=== PATIENT | male | born 1960 | race Caucasian/White ===

== ENCOUNTER 2019-04-16 05:25 | Emergency (ER) | payer BC, SELFPAY ==
[2019-04-16 05:55] VITALS: BP 114/71; PULSE 80; RESP 20; TEMP 36.7; O2SAT 97
--- NOTE | 2019-04-16 06:19 | ED.BACK ---
HPI - Back Pain/Injury General Chief Complaint: Back Pain/Injury Stated Complaint: sick Source: patient Mode of arrival: ambulatory Limitations: no limitations History of Present Illness HPI Narrative: 58 y.o. c/o right sided low back pain exacerbation for one week, worse over the past 3 days. Chronic pain x years. His pain is typically no more than 3/10, but now is 7/10, and gets up to a 8-9/10 with movement. Getting in and out of bed, putting shoes on, bending forward and assuming upright position are all painful. Has had multiple MRIs which, pt. reports, show disc herniation at L3 through S1. He has no pain or numbness radiating into the buttocks, thigh or leg. He denies weakness. Coughing and laughing cause minor discomfort. His current symptoms are identical to that of a year ago, and exacerbations in the past. 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 Recently he has been doing more activities that involve bending over the bucket, or shoveling, which exacerbate the pain. Ibuprofen and Tylenol with codeine have been tried without benefit. In the past, last time about one year ago, when he's had these same symptoms, they have responded to a steroid shot, Toradol shot and Medrol dosepak. He denies fever, chills, weight loss, hx of cancer. NO bowel/bladder dysfunction. Radiation: other (at times pain also radiates up right side of back to the scapula region. ) Related Data Home Medications Medication Instructions Recorded Confirmed acetaminophen-codeine 1 tablet PO Q4H PRN 04/16/19 04/16/19 [Tylenol-Codeine #3] Allergies Allergy/AdvReac Type Severity Reaction Status Date / Time No Known Allergies Verified 03/14/09 12:11 Review of Systems Constitutional: Constitutional: Reports as per HPI and Denies fever(s) ENT: Denies dizziness Cardiovascular: Cardiovascular: Denies chest pain Respiratory: Respiratory: Denies dyspnea Gastrointestinal: Gastrointestinal: Denies abdominal pain, Denies diarrhea and Denies vomiting Genitourinary: Genitourinary: Denies dysuria Musculoskeletal: Musculoskeletal: Reports no additional musculoskeletal complaints Integumentary/Breasts: Skin/Breast: Denies rash Neurologic: Reports system reviewed and no additional complaints, except as documented PMFSH Past Medical History Medical History (Updated 04/16/19 @ 06:42 by John Mendez MD) Disc disorder of lumbar region Family History Family History (Updated 04/16/19 @ 06:43 by John Mendez MD) Mother Lung cancer Father Liver cirrhosis Social History Social History (Updated 04/16/19 @ 06:43 by John Mendez MD) Smoking status: Never smoker Exam Narrative: Exam Narrative: Lying flat on his back. Has to turn over onto his side and push himself to sitting position in order to stand up, which appears to be painful. Const: General: No ill appearing HENMT: Head: normal to inspection Face and sinus: normal facial exam Neck: Neck: no lymphadenopathy Resp: Auscultation: clear to auscultation bilaterally Cardio: Rate: regular rate Rhythm: regular rhythm Heart sounds: no murmurs GI: GI Palp: Yes Soft to palpation and No Tenderness to palpation present (GI) Back/Spine/Pelvis: Back: no CVA tenderness Other: stands upright. Points to the right lumbar region between L1 in 5 worry has discomfort. There has been no tenderness on palpation. No muscle spasm. Lumbar and sacral spinous processes. No sciatic notch tenderness. He is able to flex forward approximately 20? when he encounters increased pain. Is painful do a semi-upright position. Skin: General skin exam: normal color Rashes: no rashes Neuro: General: moves all extremities Other: light touch sensation to the feet intact. 5+ great toe dorsiflexion strength bilaterally. Able to walk on heels and toes with normal strength. 2+ patellar and ankle jerk reflexes. Straight leg raise negative Course Course Emergency Course: He wa
[2019-04-16] MEDS: KETOROLAC (*BKC) 60 MG/2 ML VIAL IM (06:24)
[2019-04-16] MEDS: predniSONE 20 MG TABLET 60 MG PO (06:24)
[2019-04-16 06:47] VITALS: BP 120/62; PULSE 82; RESP 18; O2SAT 98
== END 2019-04-16 06:51 | disposition home or self-care (01) ==
PROVIDERS: Emergency Provider Family Medicine; PCP Internal Medicine
DX: M54.16 Radiculopathy, lumbar region (principal)
CPT/HCPCS: 96372; 99283; J1885; J7512

== ENCOUNTER 2019-09-21 16:16 | Outpatient (CLI) | payer BC, SELFPAY ==
--- NOTE | ~2019-09-21 | XR_ITS ---
XR knee LT min 4V 09/21/2019 16:54 Indication: Left knee pain Procedure: 4 views left knee Comparison: 03/03/2018 Findings: There is mild tricompartment osteoarthritis of the left knee. No fracture or traumatic victor hugo lignment. No significant joint effusion. No focal soft tissue abnormality. No foreign bodies. Impression: 1: Mild tricompartment osteoarthritis of the left knee. Reviewed, dictated and finalized at location A. Impression: 1: Mild tricompartment osteoarthritis of the left knee.
== END 2019-09-21 16:17 | disposition home or self-care (01) ==
LOC: CHSIMG 16:21
PROVIDERS: PCP Internal Medicine; Visit Provider Internal Medicine
DX: M25.562 Pain in left knee (principal)
CPT/HCPCS: 73564

== ENCOUNTER 2019-12-16 16:39 | Emergency (ER) | payer BC, SELFPAY ==
[2019-12-16 17:57] VITALS: BP 97/67; PULSE 97; RESP 16; TEMP 36.6; O2SAT 97
[2019-12-16] MEDS: KETOROLAC (*BKC) 60 MG/2 ML VIAL IM (18:09)
[2019-12-16] MEDS: methylPREDNISolone ACETATE 40 MG/ML VIAL 80 MG IM (18:12)
--- NOTE | 2019-12-16 18:30 | ED.BACK ---
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 Patient has not had any fever or chills, gets relief with some with some rest and with walking with exacerbation with movement twisting. Has tried [id number] medications with minimal relief has a chronic history of back problems and has had back spasms in the past. MD elicited complaint: back pain Pertinent past history: prior back pain Onset (ago): hour(s) Timing: intermittent Severity: moderate Similar Symptoms Previously: Yes Quality: aching and spasming Location: lumbar spine and right lower back Radiation: none Exacerbating factors: movement Relieving factors: sitting upright and walking Context: while lifting, turning/twisting and bending Associated symptoms: denies other symptoms Related Data Allergies Allergy/AdvReac Type Severity Reaction Status Date / Time No Known Allergies Allergy Verified 12/16/19 17:57 Review of Systems Review of Systems: All systems reviewed & are unremarkable except as noted in HPI and below PMFSH Past Medical History Medical History Chronic back pain Exam Const: General: cooperative, healthy appearing, comfortable, no acute distress, well developed, alert, awake and Physically active HENMT: Face and sinus: normal facial exam Mouth: Yes Normal oral and palatal mucosa present Throat: posterior oropharynx normal Eyes: General: appearance normal, both eyes and all related structures Visual Leija: normal visual leija by confrontation Neck: Neck: normal visual inspection Chest: Chest palpation & inspection: normal inspection of the chest Resp: Effort & Inspection: normal respiratory effort and able to speak in complete sentences Auscultation: clear to auscultation bilaterally Cardio: Jugular venous distension: no JVD Palpation: normal PMI Rate: regular rate Rhythm: regular rhythm Heart sounds: S1 normal heart sound present and S2 normal heart sound present GI: Inspection: normal to inspection Percussion: Yes normal to percussion Auscultation: normal bowel sounds Back/Spine/Pelvis: Thoracic/Lumbar Spine: paraspinal muscle tenderness, thoraco-lumbar ROM limited, thoraco-lumbar spasm and lumbar spinal tenderness Skin: General skin exam: normal color and no rashes or lesions noted Psych: Appearance: grossly normal and well kempt Mental Status: mental status grossly normal Affect: normal affect Course Course Emergency Course: patient's back pain and spasm is some mildly relieved with Depo-Medrol and Toradol, advised patient to take medicine as prescribed and follow-up with with his primary care physician. Vital Signs Vital signs: Vital Signs Temperature 36.6 C 12/16/19 17:57 Pulse Rate 97 12/16/19 17:57 Respiratory Rate 16 12/16/19 17:57 Blood Pressure 97/67 L 12/16/19 17:57 Pulse Oximetry 97 12/16/19 17:57 Temperature 36.6 C 12/16/19 17:57 Pulse Rate 97 12/16/19 17:57 Respiratory Rate 16 12/16/19 17:57 Blood Pressure 97/67 L 12/16/19 17:57 Pulse Oximetry 97 12/16/19 17:57 Critical Care Time Critical Care Time Critical Care Time: No Discharge Plan Discharge Clinical Impression: Strain of lumbar region Qualifiers: Encounter type: initial encounter Qualified Code(s): S39.012A - Strain of muscle, fascia and tendon of lower back, initial encounter Patient Disposition: Home, Self-Care Condition: Stable Instructions: Antibiotic Form, Back Pain (ED), Lower Back
== END 2019-12-16 18:58 | disposition home or self-care (01) ==
PROVIDERS: Emergency Provider Emergency Medicine; PCP Internal Medicine
DX: S39.012A Strain of muscle, fascia and tendon of lower back, initial encounter (principal)
CPT/HCPCS: 96372; 99283; 99284; J1030; J1885

== ENCOUNTER 2019-12-21 07:45 | Outpatient (RCR) | payer BC, SELFPAY ==
--- NOTE | 2019-12-21 07:47 | PTOPEVAL ---
Thank you for referring John Queen to [facility] [place][Note 3].? The patient is scheduled to be seen for therapy? _1___x/week for __6_ weeks. Please review, sign, date and return this plan of care JAKE. I agree with and certify that the following plan of care is medically necessary. Referring Physician Date Admitting Provider: Attending Provider: Tennille Newsome MD Referring Provider: *PT Outpatient Evaluation Start: 12/21/19 06:58 Freq: Status: Active Protocol: Document 12/21/19 07:00 [facility] (Rec: 12/21/19 07:46 [facility] [id number]) Therapy Assessment Status Assessment Status Assessment Status Evaluation Outpatient Past Medical History Musculoskeletal History Hx Back Pain Yes Evaluation Information Problem Diagnosis acute lumbar sprain Onset 12/15/19 Additional Evaluation Detail 34% limitation on the Oswestry Subjective Information Pt. reports that he developed Query Text:As Reported By Patient/ some tightness on 12/15/19. Family He states that he notes difficulty with lifting him self from a flat back position . He reports that he was moving some logs that Wednesday which increased his pain. He reports that he could not get out of bed on Wednesday and Wednesday without extreme pain. He reports that he recieved a toridol shot and steroid dose pack which helped to reduce his pain. He reports that he has not had intense pain for about 1 year. He states that he has multiple levels of herniation in the lumbar spine . He reports that the harder his activity level the more pain he has. He states that his goal is to be pain free. 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
--- NOTE | 2020-02-12 08:37 | PTOPEVAL ---
Thank you for referring John Queen to [facility] [place].? The patient is scheduled to be seen for therapy? ____x/week for ___ weeks. Please review, sign, date and return this plan of care JAKE. I agree with and certify that the following plan of care is medically necessary. Referring Physician Date Admitting Provider: Attending Provider: Tennille Newsome MD Referring Provider: *PT Outpatient Evaluation Start: 12/21/19 06:58 Freq: Status: Active Protocol: Document 02/12/20 07:00 [facility] (Rec: 02/12/20 08:28 [facility] [id number]) Therapy Assessment Status Assessment Status Assessment Status Re-evaluation Outpatient Past Medical History Musculoskeletal History Hx Back Pain Yes Evaluation Information Problem Diagnosis acute lumbar sprain Additional Evaluation Detail 36% limitation on Oswestry Subjective Information patient reports he has been Query Text:As Reported By Patient/ off from therapy for a few Family weeks due to being in quarantine and then working. he reports he is still having a bit of back pain. he reports the pain is worse in the evenings after a long/ exhaustive day. he reports his back pain does fluctuate and he continues to get spasming in the legs when in bed at night. Pain Assessment Timing of Pain Assessment Timing of Pain Assessment Assessment Pain Scale Pain Scale Used Numeric (1 - 10) Self Report Pain Assessment Lower Back Reported Pain Level 2 Pain Description Aching,Cramping Pain Frequency Intermittent Lowest Pain Intensity 2 Greatest Pain Intensity 10 Pain Aggravating Factors Bending Pain Score Pain Score 2: Self Report Interventions Used Interventions Used By Clinicians Activity or ADL's,Education, Electrical Stimulation, Exercise,Heat Cervical and Lumbar ROM Lumbar ROM Lumbar Extension (0-40) 30 Query Text:Active in Degrees Lumbar Lateral Flexion Right (0-40) 35 Query Text:Active in Degrees Lumbar Lateral Flexion Left (0-40) 35 Query Text:Active in Degrees Lower Extremity Muscle Strength Testing General Lower Extremity Strength Gross Lower Extremity Strength bilateral hip abduction 4+/5 bilateral hip extension 4+/5 Muscle Length Testing Muscle Length Testing Piriformis w/Hip Flexion >90 Degrees (R) Moderate Tightness,(L) Moderate Tightness
== END 2020-02-27 08:54 | disposition home or self-care (01) ==
LOC: CHSPT 07:45
PROVIDERS: PCP Internal Medicine; Visit Provider Internal Medicine
DX: S33.5XXA Sprain of ligaments of lumbar spine, initial encounter (principal)
CPT/HCPCS: 97014; 97110; 97161; G0283

== ENCOUNTER → 2020-01-11 07:01 | Outpatient (CLI) | payer BC, SELFPAY ==
--- NOTE | ~2020-01-11 | MR_ITS ---
EXAMINATION: MR knee LT wo con DATE: 01/11/2020 07:42 INDICATION: Left knee pain. TECHNIQUE: Magnetic resonance imaging (MRI) of the left knee was performed without intravenous contra st. Sequences included axial PD-weighted FS FSE, coronal PD-weighted FSE and PD-weighted FS FSE, sagi ttal PD-weighted FSE, and sagittal T2-weighted FS FSE. COMPARISON: None. FINDINGS: Medial compartment: Medial meniscus is normal. Tibial cartilage is normal. There is cartilage surface irregularity of fem oral condyle involving the central articular surface. Lateral compartment: There is maceration of body and posterior horn of lateral meniscus. There is full-thickness cartilage loss of tibial condyle involving the central, medial, lateral, and posterior aspects of the articula r surface with moderate subchondral edema-like marrow signal intensity and small subchondral cyst. Th ere is full-thickness cartilage loss of femoral condyle involving the central, lateral, and posterior articular surface with mild subchondral edema-like marrow signal intensity. There is extensive parti al thickness cartilage loss of femoral condyle. Marginal osteophytes are noted. Patellofemoral compartment: There is shallow partial-thickness cartilage loss of patellar lateral facet. There is cartilage surfa ce irregularity of trochlea. Ligaments and tendons: Anterior and posterior cruciate ligaments are intact. Medial collateral ligament and lateral collater al ligament complex are normal. There is mild patellar tendinopathy. Fluid: There is a small knee joint effusion. There are ganglion cysts adjacent to proximal tibiofibular join t measuring up to 13 x 8 x 17 mm. IMPRESSION: 1. Severe chondrosis of lateral compartment and mild chondrosis of medial and patellofemoral compartm ents. 2. Maceration of lateral meniscus. 3. Small knee joint effusion. Reviewed, dictated and finalized at location A. T ATTENDANT IMPRESSION: 1. Severe chondrosis of lateral compartment and mild chondrosis of medial and p atellofemoral compartments. 2. Maceration of lateral meniscus. 3. Small knee joint effusion.
== END ==
PROVIDERS: PCP Internal Medicine; Visit Provider Internal Medicine
DX: M25.462 Effusion, left knee (principal)
CPT/HCPCS: 73721

== ENCOUNTER 2020-07-29 07:52 | Outpatient (RCR) | payer OTHER, SELFPAY ==
--- NOTE | 2020-07-29 09:14 | PTOPEVAL ---
Thank you for referring John Queen to [facility].? The patient is scheduled to be seen for therapy? ____x/week for ___ weeks. Please review, sign, date and return this plan of care JAKE. I agree with and certify that the following plan of care is medically necessary. Referring Physician Date Admitting Provider: Attending Provider: Jett Lacy Referring Provider: *PT Outpatient Evaluation Start: 07/29/20 08:04 Freq: Status: Active Protocol: Document 07/29/20 08:00 [facility] (Rec: 07/29/20 09:03 [facility] [id number]) Therapy Assessment Status Assessment Status Assessment Status Evaluation Outpatient Past Medical History Musculoskeletal History Hx Back Pain Yes Evaluation Information Problem Diagnosis s/p L RTC repair Onset 05/10/20 Additional Evaluation Detail quick dash = 81% functionally declined Subjective Information patient reports he injured his Query Text:As Reported By Patient/ L shoulder back on 05/10/20 Family at work. he reports he works for [id number]. he reports he was carrying about 20 loads of sand [employer]izabeth [employer] [place]. he reports the wheel barrown fell down into some sand and he felt 2 pings in his shoulder . he reports from then on he had pain and discomfort in the L shoulder. later on this was coupled by decreased mobility . he reports he is now S/P surgery and will be 2 weeks out this wednesday. Prior Level of Function Comments Additional Prior Level of Function prior to injury at work, no Comments issues with the L shoulder. Pain Assessment Timing of Pain Assessment Timing of Pain Assessment Assessment Pain Scale Pain Scale Used Numeric (1 - 10) Self Report Pain Assessment Left Shoulder(s) Reported Pain Level 3 Greatest Pain Intensity 10 Pain Score Pain Score 3: Self Report Interventions Used Interventions Used By Clinicians Activity or ADL's,Education, Exercise Upper Extremity Range of Motion Scapular/ Shoulder Range of Motion Left Shoulder Flexion - Passive 90 Shoulder Medial Rotation - Passive 50 Shoulder Lateral Rotation - Passive 0 Right Shoulder Flexion - Active 160 Shoulder Flexion - Passive 165 Shoulder Medial Rotation - Active 55 Shoulder Lateral Rotation - Active 90 Elbow/Forearm Range of Motion Left El
--- NOTE | 2020-08-14 07:51 | PCPTNOTE ---
Mr. Queen has attended 8 skilled therapy visits as of this date. His therapy has focused solely on PROM of the L shoulder up to this date. Today, he was progressed to pendulum exercises of the L shoulder, scapular retractions, and shoulder shrugs. As of this date, he achieves passive shoulder flexion to 135 degrees, passive shoulder abduction to 100 degrees, and passive shoulder ER to 20 degrees at 0 degrees of shoulder abduction. He tolerates therapy well, but still struggles with pain at night. He continues to be compliant with his sling wear, and has family assist at home for exercises. Thank you for allowing me to be involved in the rehab of Mr. Queen. Please feel free to call my office if you have any further questions or issues. Sincerely, Ralph Allison DPT
[2020-08-30 07:00] VITALS: BP_SYST 90
--- NOTE | 2020-08-30 08:22 | PTOPEVAL ---
Thank you for referring John Anderson to [facility].? The patient is scheduled to be seen for therapy? ____x/week for ___ weeks. Please review, sign, date and return this plan of care JAKE. I agree with and certify that the following plan of care is medically necessary. Referring Physician Date Admitting Provider: Attending Provider: Jett Lacy Referring Provider: *PT Outpatient Evaluation Start: 07/29/20 08:04 Freq: Status: Active Protocol: Document 08/30/20 07:00 [facility] (Rec: 08/30/20 08:19 [facility] [id number]) Therapy Assessment Status Assessment Status Assessment Status Progress Outpatient Past Medical History Musculoskeletal History Hx Back Pain Yes Evaluation Information Problem Diagnosis s/p L RTC repair Onset 05/10/20 Subjective Information mr. anderson is now 6 weeks post Query Text:As Reported By Patient/ surgery. he reports decreasing Family pain overall. however, he reports increased pain still with trying to sleep at night. he reports he is allowed to DC sling, but has continued to use it for safety outside of the home. he reports he plans to DC his sling fully within a week. Pain Assessment Timing of Pain Assessment Timing of Pain Assessment Assessment Pain Scale Pain Scale Used Numeric (1 - 10) Self Report Pain Assessment Left Shoulder(s) Reported Pain Level 2 Greatest Pain Intensity 8 Pain Score Pain Score 2: Self Report Interventions Used Interventions Used By Clinicians Activity or ADL's,Education, Electrical Stimulation, Exercise,Heat Upper Extremity Range of Motion Scapular/ Shoulder Range of Motion Left Shoulder Flexion - Passive 145 Shoulder Abduction - Passive 90 Shoulder Medial Rotation - Passive 75 Shoulder Medial Rotation - Active measured at 45 degrees Query Text:Reach Behind the Back abduction Shoulder Lateral Rotation - Passive 36 Shoulder Lateral Rotation - Active mesaured at 45 degrees Query Text:Reach Behind the Head abduction Scapular/Shoulder Range of Motion supine arom L shoulder flex = Comments 145 degrees patient reports popping and catching in the L shoulder with pain with passive abduction, but achieves 90 degrees. Elbow/Forearm Range of Motion Left Reason Not Measured WNL/Left Right
[2020-09-27 07:05] VITALS: BP_SYST 135
--- NOTE | 2020-09-27 08:29 | PTOPEVAL ---
Thank you for referring John Queen to [facility] [place].? The patient is scheduled to be seen for therapy? ____x/week for ___ weeks. Please review, sign, date and return this plan of care JAKE. I agree with and certify that the following plan of care is medically necessary. Referring Physician Date Admitting Provider: Attending Provider: Jett Lacy Referring Provider: *PT Outpatient Evaluation Start: 07/29/20 08:04 Freq: Status: Active Protocol: Document 09/27/20 07:05 [facility] (Rec: 09/27/20 08:28 [facility] [id number]) Therapy Assessment Status Assessment Status Assessment Status Re-evaluation Outpatient Past Medical History Musculoskeletal History Hx Back Pain Yes Evaluation Information Problem Diagnosis s/p L RTC repair Onset 05/10/20 Subjective Information patient presents to therapy Query Text:As Reported By Patient/ this date with a new order to Family continue skilled PT from his MD. patient is just past 10 weeks out from therapy and still limited to arom/aarom and shoulder isometric strengthening. Pain Assessment Timing of Pain Assessment Timing of Pain Assessment Assessment Pain Scale Pain Scale Used Numeric (1 - 10) Self Report Pain Assessment Left Shoulder(s) Reported Pain Level 3 Greatest Pain Intensity 8 Pain Score Pain Score 3: Self Report Additional Pain Score Comments patient reports stabbing pain in the L shoulder within the last week when he is washing his hair, reaching out to turn on light switch, Interventions Used Interventions Used By Clinicians Activity or ADL's,Education, Exercise Upper Extremity Range of Motion Scapular/ Shoulder Range of Motion Left Shoulder Flexion - Active 140 Shoulder Flexion - Passive 155 Shoulder Abduction - Active 105 Shoulder Abduction - Passive 135 Shoulder Lateral Rotation - Active 25 Shoulder Lateral Rotation - Passive 40 Scapular/Shoulder Range of Motion patient reports tightness and Comments pain with L shoulder ER mobility. Upper Extremity Muscle Strength Testing Scapular/Shoulder Left Shoulder Flexion Strength 3+ Fair + Shoulder Abduction Strength 3+ Fair + Shoulder Medial Rotation Strength 3+ Fair + Shoulder Lateral Rotation Strength 3+ Fair + Shoulder Strength Comments patient reports catching/ stabbing pain still in the L
--- NOTE | 2020-10-14 12:56 | PTOPEVAL ---
Thank you for referring John Queen to [facility].? The patient is scheduled to be seen for therapy? __2__x/week for 5 visits. Please review, sign, date and return this plan of care JAKE. I agree with and certify that the following plan of care is medically necessary. Referring Physician Date Admitting Provider: Attending Provider: Jett Lacy Referring Provider: *PT Outpatient Evaluation Start: 07/29/20 08:04 Freq: Status: Active Protocol: Document 10/14/20 07:00 FLY (Rec: 10/14/20 12:55 FLY [id number]) Therapy Assessment Status Assessment Status Assessment Status Progress Outpatient Past Medical History Musculoskeletal History Hx Back Pain Yes Evaluation Information Problem Diagnosis s/p left RTC repair Onset 05/10/20 Subjective Information Pt. reports that he has been Query Text:As Reported By Patient/ feeling better the past couple Family days. He states that he has not been using tramadol and was able to sleep comfortably in bed last night. He reports that he still has a small area of pain that concerns him in the described lateral shoulder. Pain Assessment Timing of Pain Assessment Timing of Pain Assessment Pre-Treatment Pain Scale Pain Scale Used Numeric (1 - 10) Self Report Pain Assessment Left Shoulder(s) Reported Pain Level 2 Pain Score Pain Score 2: Self Report Interventions Used Interventions Used By Clinicians Electrical Stimulation, Exercise,Ice Upper Extremity Range of Motion General Upper Extremity Range of Motion Gross Upper Extremity Range of Motion -left shoulder flexion AROM Comments 155 degrees -left shoulder ER AROM 85 degrees -left shoulder IR AROM 72 degrees Upper Extremity Muscle Strength Testing General Upper Extremity Strength Gross Upper Extremity Strength Comments -left shoulder flexion 4-/5 -left shoulder ER 3+/5 -left shoulder IR 4+/5 General Exercise General Exercises Exercise Description -variable isometric flexion, Query Text:Record Sets, Reps, extension, abduction, IR, and Resistance, and Position ER x 12 reps at 5 second holds -pulleys x 3 minutes -passive stretching into left shoulder flexion, ER, and IR x 12 minutes
--- NOTE | 2020-10-30 14:15 | PTOPEVAL ---
Thank you for referring John Queen to [facility].? The patient is scheduled to be seen for therapy? ____x/week for ___ weeks. Please review, sign, date and return this plan of care JAKE. I agree with and certify that the following plan of care is medically necessary. Referring Physician Date Admitting Provider: Attending Provider: Jett Lacy Referring Provider: JacyPT Outpatient Evaluation Start: 07/29/20 08:04 Freq: Status: Discharge Protocol: Document 10/29/20 07:00 Taurus (Rec: 10/30/20 14:14 ELIJAH [email or web address]) Therapy Assessment Status Assessment Status Assessment Status Re-evaluation Outpatient Past Medical History Musculoskeletal History Hx Back Pain Yes Evaluation Information Problem Diagnosis s/p left RTC repair Onset 05/10/20 Additional Evaluation Detail quick dash = 50% functionally declined Subjective Information patient reports he feels Query Text:As Reported By Patient/ alright this date. he reports Family at rest his pain is low, but reports with reaching out to side, across body, and shrugging he will get spikes of pain up to a 7/10. he report she does not return to the MD for follow up for a few weeks. Pain Assessment Timing of Pain Assessment Timing of Pain Assessment Assessment Pain Scale Pain Scale Used Numeric (1 - 10) Self Report Pain Assessment Left Shoulder(s) Reported Pain Level 2 Pain Description Sharp Greatest Pain Intensity 7 Pain Score Pain Score 2: Self Report Interventions Used Interventions Used By Clinicians Activity or ADL's,Education, Exercise Upper Extremity Range of Motion Scapular/ Shoulder Range of Motion Left Shoulder Flexion - Active 155 Shoulder Medial Rotation - Active 72 Shoulder Medial Rotation - Active functional reach to the upper Query Text:Reach Behind the Back lumbar spine Shoulder Lateral Rotation - Active 75 Shoulder Lateral Rotation - Active functional reach to the Query Text:Reach Behind the Head midline lower cervical spine Scapular/Shoulder Range of Motion clicking and spikes of Comments pain noted with passiev and active ER and coming back to neutral from ER. Upper Extremity Muscle Strength Testing Scapular/Shoulder Left Shoulder Flexion Strength 4 Good Shoulder Abduction Strength 4- Good - Shoulder Medial Rotation Strength 5 Normal Shoulder Lateral Rotation Strength 4 Good Gen
== END 2020-10-29 18:00 | disposition still patient (30) ==
LOC: CHSPT 07:52
DX: M75.102 Unspecified rotator cuff tear or rupture of left shoulder, not specified as traumatic (principal); S46.112A Strain of muscle, fascia and tendon of long head of biceps, left arm, initial encounter
CPT/HCPCS: 97014; 97110; 97161; G0283

== ENCOUNTER 2020-10-21 08:06 | Outpatient (CLI) | payer BC, SELFPAY ==
[2020-10-21 08:31] LABS: Add Urine Microscopic? NO; Appearance Urine Clear (Clear); Basophils Absolute Auto 0.05 K/mm3 (0.00-0.10); Basophils Percent Auto 0.8 % (0.0-1.0); Bilirubin Urine Negative (Negative); Blood Urine Negative (Negative); Color Urine Light Yellow (Yellow); Eosinophils Absolute Auto 0.34 K/mm3 (0.02-0.50); Eosinophils Percent Auto 5.3 % (1.0-6.0); Glucose Urine UA Negative (Negative); Hematocrit 44.1 % (40.0-54.0); Hemoglobin 14.3 g/dL (14.0-18.0); Immature Granulocyte Absolute 0.03 K/mm3 (0.00-0.00); Immature Granulocyte Percent A 0.5 % (0.0-0.0); Ketones Urine Negative (Negative); Leukocyte Esterase Ur Negative LEU/UL (Negative); Lymphocytes Absolute Auto 1.82 K/mm3 (1.10-4.50); Lymphocytes Percent Auto 28.6 % (18.0-42.0); Mean Corpuscular HGB Conc 32.4 g/dL (32.0-36.0); Mean Corpuscular Hemoglobin 30.1 pg (27.0-31.0); Mean Corpuscular Volume 92.8 fL (78.0-102.0); Mean Platelet Volume 9.6 fl (8.7-11.0); Monocytes Absolute Auto 0.39 K/mm3 (0.10-0.90); Monocytes Percent Auto 6.1 % (2.0-11.0); Neutrophils Absolute Auto 3.7 K/mm3 (1.7-7.2); Neutrophils Percent Auto 58.7 % (50.0-70.0); Nitrate Urine Negative (Negative); Platelet Count Result 274 K/mm3 (150-420); Protein Urine Negative (Negative); Red Blood Count 4.75 M/mm3 (4.70-6.10); Red Cell Distribution Width 12.7 % (11.6-14.4); Urobilinogen Urine 0.2 mg/dL (0.2-1.0); White Blood Count 6.4 K/mm3 (4.8-10.8)
[2020-10-21 09:40] LABS: Alanine Aminotransferase 32 U/L (16-63); Albumin Level 4.3 g/dL (3.4-5.0); Alkaline Phosphatase 50 U/L (46-116); Anion Gap 7 mmol/L (8-16); Aspartate Amino Transferase 14 U/L (15-37); Bilirubin,Total 0.4 mg/dL (0.00-1.00); Blood Urea Nitrogen 15 mg/dL (7-18); Calcium 9.2 mg/dL (8.5-10.1); Carbon Dioxide 29 mmol/L (21-32); Chloride 107 mmol/L (98-108); Cholesterol 200 mg/dL (0-200); Estimated Glomerular Filt Rate > 60; Free T4 Free Thyroxine 0.87 ng/dL (0.76-1.46); Glucose 111 mg/dL (70-99); HDL Direct 37 mg/dL (40-60); LDL Cholesterol Calculated 130 mg/dL (<130); Osmolality Calculated 297 mOsm/kg (285-295); Potassium 5.1 mmol/L (3.5-5.1); Prostate Specific Antigen 1.2 ng/mL (< OR = 4.0); Sodium 143 mmol/L (136-145); Thyroid Stimulating Hormone 2.09 uIU/mL (0.36-3.74); Total Protein 7.4 g/dL (6.4-8.2); Triglycerides 163 mg/dL (0-150)
[2020-10-24 18:15] LABS: Hemoglobin A1C 5.7 % (<5.7)
== END 2020-10-21 08:07 | disposition home or self-care (01) ==
LOC: CHSLAB 08:08
PROVIDERS: PCP Internal Medicine; Visit Provider Nurse Practitioner Family
DX: Z00.00 Encounter for general adult medical examination without abnormal findings (principal); D68.59 Other primary thrombophilia; R73.01 Impaired fasting glucose; Z12.5 Encounter for screening for malignant neoplasm of prostate
CPT/HCPCS: 36415; 80053; 80061; 81003; 81241; 83036; 84153; 84439; 84443; 85025; G0103

== ENCOUNTER 2020-10-31 08:14 | Outpatient (RCR) | payer OTHER, SELFPAY ==
[2020-10-31 08:11] VITALS: BP_SYST 135
--- NOTE | 2020-11-12 08:48 | PTOPEVAL ---
Thank you for referring John Queen to [facility].? The patient is scheduled to be seen for therapy? ____x/week for ___ weeks. Please review, sign, date and return this plan of care JAKE. I agree with and certify that the following plan of care is medically necessary. Referring Physician Date Admitting Provider: Attending Provider: Jett Lacy Referring Provider: *PT Outpatient Evaluation Start: 10/31/20 08:14 Freq: Status: Active Protocol: Document 11/12/20 07:00 ELIJAH (Rec: 11/12/20 08:47 [facility] [email or web address]) Therapy Assessment Status Assessment Status Assessment Status Re-evaluation Outpatient Past Medical History Musculoskeletal History Hx Back Pain Yes Evaluation Information Problem Diagnosis s/p left RTC repair Onset 05/10/20 Additional Evaluation Detail quick dash = Subjective Information patient reports he continues Query Text:As Reported By Patient/ to have pain in the L shoulder Family that is around a 2-3/10 at rest and spikes up to a 5-6/10 with shoulder abduction movement. he reports he has to do this frequently at work. he reports activities like reaching out to his side, winding up a rope/cord, and reaching across his body cause the spikes of pain in the L shoulder. Pain Assessment Timing of Pain Assessment Timing of Pain Assessment Assessment Pain Scale Pain Scale Used Numeric (1 - 10) Self Report Pain Assessment Left Shoulder(s) Reported Pain Level 3 Greatest Pain Intensity 6 Pain Score Pain Score 3: Self Report Interventions Used Interventions Used By Clinicians Activity or ADL's,Education, Exercise Upper Extremity Range of Motion General Upper Extremity Range of Motion Gross Upper Extremity Range of Motion -left shoulder flexion AROM Comments 155 degrees -left shoulder ER AROM 85 degrees -left shoulder IR AROM 72 degrees patient reports clicking/spike of pain at certain points of L shoulder abduction and abducted shoudler ER/IR. Upper Extremity Muscle Strength Testing General Upper Extremity Strength Gross Upper Extremity Strength Comments -left shoulder flexion 4-/5 * pain
--- NOTE | 2020-12-04 08:02 | PTOPEVAL ---
Thank you for referring John Queen to [facility].? The patient is scheduled to be seen for therapy? _2___x/week for 4 visits. Please review, sign, date and return this plan of care JAKE. I agree with and certify that the following plan of care is medically necessary. Referring Physician Date Admitting Provider: Attending Provider: Jett Lacy Referring Provider: *PT Outpatient Evaluation Start: 10/31/20 08:14 Freq: Status: Active Protocol: Document 12/04/20 06:47 FLY (Rec: 12/04/20 08:01 FLY [email or web address]) Therapy Assessment Status Assessment Status Assessment Status Progress Outpatient Past Medical History Musculoskeletal History Hx Back Pain Yes Evaluation Information Problem Diagnosis s/p left RTC repair Subjective Information Pt. reports that his current Query Text:As Reported By Patient/ pain is 1/10. He reports that Family pain can spike to a 5-6/10 with certain motions. He states that he still has pain reaching across his body, specifically with reaching for his seatbelt. He also notes pain with using a steering wheel. Pt. reports that he will be returning to the doctor tomorrow. Pain Assessment Timing of Pain Assessment Timing of Pain Assessment Pre-Treatment Pain Scale Pain Scale Used Numeric (1 - 10) Self Report Pain Assessment Left Shoulder(s) Reported Pain Level 1 Pain Score Pain Score 1: Self Report Interventions Used Interventions Used By Clinicians Activity or ADL's,Exercise, Heat,Ice Upper Extremity Range of Motion General Upper Extremity Range of Motion Gross Upper Extremity Range of Motion Left shoulder AROM in supine: Comments -left shoulder flexion AROM 160 degrees -left shoulder ER AROM 85 degrees -left shoulder IR AROM 72 degrees -When assessing functional ROM pt. is able to reach to the mid thoracic region with combined IR and extension of the right and left shoulder. He reaches to the area of the CT junction with the left u.e. and T3 level with the right u .e. with combined ER and
== END 2020-12-05 17:00 | disposition other institution (70) ==
LOC: CHSPT 08:14
DX: M75.102 Unspecified rotator cuff tear or rupture of left shoulder, not specified as traumatic (principal); S46.112A Strain of muscle, fascia and tendon of long head of biceps, left arm, initial encounter; Z98.890 Other specified postprocedural states
CPT/HCPCS: 97110; 97530

== ENCOUNTER 2021-01-24 07:57 | Outpatient (RCR) | payer OTHER, SELFPAY ==
[2021-01-21 09:43] VITALS: BP_SYST 135
--- NOTE | 2021-01-24 08:30 | PTOPEVAL ---
Thank you for referring John Queen to [facility].? The patient is scheduled to be seen for therapy? ____x/week for ___ weeks. Please review, sign, date and return this plan of care JAKE. I agree with and certify that the following plan of care is medically necessary. Referring Physician Date Admitting Provider: Attending Provider: Jett Lacy Referring Provider: *PT Outpatient Evaluation Start: 01/24/21 07:04 Freq: Status: Active Protocol: Document 01/24/21 07:05 Taurus (Rec: 01/24/21 08:01 Taurus [id number]) Therapy Assessment Status Assessment Status Assessment Status Evaluation Outpatient Past Medical History Musculoskeletal History Hx Back Pain Yes Evaluation Information Problem Diagnosis L shoulder RTC repair, and scope removal of anchor Onset 05/10/20 Additional Evaluation Detail quick dash = 47% functional deficits Subjective Information patient originally injured the Query Text:As Reported By Patient/ L shoulder during work on . he had shoulder RTC repair, but ultimately had to return to surgery due to a broken anchor causing him pain . he is now coming back to therapy after scope anchor removal. 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 patient reports a lot of difficulty getting L arm in jacket and pulling jacket up over shoulders. Prior Level of Function Comments Additional Prior Level of Function prior to injury, no issues Comments with the L shoulder. Pain Assessment Timing of Pain Assessment Timing of Pain Assessment Assessment Pain Scale Pain Scale Used Numeric (1 - 10) Self Report Pain Assessment Left Shoulder(s) Reported Pain Level 2 Pain Score Pain Score 2: Self Report Interventions Used Interventions Used By Clinicians Activity or ADL's,Education, Electrical Stimulation, Exercise,Heat,Medication, Manual Therapy Techniques Upper Extremity Range of Motion General Upper
== END 2021-02-20 10:26 | disposition home or self-care (01) ==
LOC: CHSPT 07:57
DX: M75.102 Unspecified rotator cuff tear or rupture of left shoulder, not specified as traumatic (principal); S46.112A Strain of muscle, fascia and tendon of long head of biceps, left arm, initial encounter; Z98.890 Other specified postprocedural states
CPT/HCPCS: 97014; 97110; 97161; G0283

== ENCOUNTER 2022-03-25 08:23 | Outpatient (CLI) | payer BC, SELFPAY ==
[2022-03-25 11:10] LABS: Alanine Aminotransferase 29 U/L (16-63); Albumin Level 4.1 g/dL (3.4-5.0); Alkaline Phosphatase 49 U/L (46-116); Anion Gap 5 mmol/L (8-16); Aspartate Amino Transferase 18 U/L (15-37); Bilirubin,Total 0.5 mg/dL (0.00-1.00); Blood Urea Nitrogen 12 mg/dL (7-18); Calcium 8.7 mg/dL (8.5-10.1); Carbon Dioxide 32 mmol/L (21-32); Chloride 105 mmol/L (98-108); Cholesterol 190 mg/dL (0-200); Creatine Kinase 218 U/L (39-308); Estimated Glomerular Filt Rate > 60; Free T4 Free Thyroxine 0.87 ng/dL (0.76-1.46); Glucose 111 mg/dL (70-99); HDL Direct 39 mg/dL (40-60); LDL Cholesterol Calculated 121 mg/dL (<130); Osmolality Calculated 294 mOsm/kg (285-295); Potassium 4.5 mmol/L (3.5-5.1); Prostate Specific Antigen 1.5 ng/mL (< OR = 4.0); Sodium 142 mmol/L (136-145); Thyroid Stimulating Hormone 1.93 uIU/mL (0.36-3.74); Total Protein 7.1 g/dL (6.4-8.2); Triglycerides 152 mg/dL (0-150)
[2022-03-25 11:11] LABS: Add Urine Microscopic? NO; Appearance Urine Clear (Clear); Bilirubin Urine Negative (Negative); Blood Urine Negative (Negative); Color Urine Light Yellow (Yellow); Glucose Urine UA Negative (Negative); Ketones Urine Negative (Negative); Leukocyte Esterase Ur Negative (Negative); Nitrate Urine Negative (Negative); Protein Urine Negative (Negative); Specific Grav Ur 1.025 (1.010-1.020); Urobilinogen Urine 0.2 mg/dL (0.2-1.0)
[2022-03-25 11:12] LABS: Basophils Absolute Auto 0.05 K/mm3 (0.00-0.10); Basophils Percent Auto 0.9 % (0.0-1.0); Eosinophils Absolute Auto 0.26 K/mm3 (0.02-0.50); Eosinophils Percent Auto 4.8 % (1.0-6.0); Hematocrit 43.5 % (40.0-54.0); Hemoglobin 13.9 g/dL (14.0-18.0); Immature Granulocyte Absolute 0.02 K/mm3 (0.00-0.00); Immature Granulocyte Percent A 0.4 % (0.0-0.0); Lymphocytes Absolute Auto 2.03 K/mm3 (1.10-4.50); Lymphocytes Percent Auto 37.1 % (18.0-42.0); Mean Corpuscular Hemoglobin 29.8 pg (27.0-31.0); Mean Corpuscular Volume 93.1 fL (78.0-102.0); Mean Platelet Volume 10.2 fl (8.7-11.0); Monocytes Absolute Auto 0.34 K/mm3 (0.10-0.90); Monocytes Percent Auto 6.2 % (2.0-11.0); Neutrophils Absolute Auto 2.8 K/mm3 (1.7-7.2); Neutrophils Percent Auto 50.6 % (50.0-70.0); Platelet Count Result 285 K/mm3 (150-420); Red Blood Count 4.67 M/mm3 (4.70-6.10); Red Cell Distribution Width 12.7 % (11.6-14.4); White Blood Count 5.5 K/mm3 (4.8-10.8)
[2022-03-25 11:43] LABS: Hemoglobin A1C 5.7 % (<5.7)
[2022-03-25 12:00] LABS: Vitamin B12 351 pg/mL (193-986)
== END 2022-03-25 08:24 | disposition home or self-care (01) ==
LOC: CHSLAB 08:26
PROVIDERS: PCP Internal Medicine; Visit Provider Internal Medicine
DX: R73.01 Impaired fasting glucose (principal); E78.2 Mixed hyperlipidemia
CPT/HCPCS: 36415; 80053; 80061; 81003; 82550; 82607; 83036; 84153; 84439; 84443; 85025; G0103

== ENCOUNTER 2022-03-25 12:26 | Outpatient (CLI) | payer BC, SELFPAY ==
--- NOTE | ~2022-03-25 | US_ITS ---
EXAMINATION: US carotid duplex BI DATE: 03/25/2022 13:19 INDICATION: Carotid bruit TECHNIQUE: Grayscale, color Doppler, and pulsed Doppler images of the cervical carotid arteries were obtained. The degree of vessel stenosis is placed in one of the following categories: normal, <50%, 5 0-69%, >=70% but less than near-occlusion, near-occlusion, or total occlusion. Note that percent sten osis relative to normal distal artery lumen diameter is indirectly measured from velocity measurement s as described by [place], et al. Radiology 2003; 229:340-346. COMPARISON: None. FINDINGS: RIGHT: The right common carotid artery (CCA) peak systolic velocity (PSV) is 82 cm/s. The right internal car otid artery (ICA) PSV is 86 cm/s. The right ICA end-diastolic velocity (EDV) is 30 cm/s. The right IC A/CCA PSV ratio is 1.1. Grayscale and color Doppler images yield an estimate of <50% diameter reducti on from plaque in the ICA. The external carotid artery (ECA) PSV is 57 cm/s. There is antegrade flow in the right vertebral artery. LEFT: The left CCA PSV is 97 cm/s. The left ICA PSV is 67 cm/s. The left ICA EDV is 21 cm/s. The left ICA/C CA PSV ratio is 0.7. Grayscale and color Doppler images yield an estimate of <50% diameter reduction from plaque in the ICA. The ECA PSV is 193 cm/s. There is antegrade flow in the left vertebral artery . IMPRESSION: 1. <50% stenosis in the right internal carotid artery. 2. <50% stenosis in the left internal carotid artery. Reviewed, dictated and finalized at location A. [facility] [employer]
== END 2022-03-25 12:27 | disposition home or self-care (01) ==
PROVIDERS: PCP Internal Medicine; Visit Provider Internal Medicine
DX: I65.23 Occlusion and stenosis of bilateral carotid arteries (principal)
CPT/HCPCS: 93880

== ENCOUNTER 2023-02-10 10:34 | Emergency (ER) | payer BC, SELFPAY ==
--- NOTE | 2023-02-10 10:44 | ED.BACK ---
HPI - Back Pain/Injury General Chief Complaint: Back Pain/Injury Stated Complaint: Lower back pain Time Seen by Provider: 02/10/23 10:57 Source: patient and RN notes reviewed Mode of arrival: ambulatory Limitations: no limitations History of Present Illness HPI Narrative: 62-year-old male presents with concern for a flare-up of low back pain. He reports he has flare-ups of his back pain intermittently and he has had this flare-up for 4 weeks. Reports he has tried multiple remedies out of work for him in the past including chiropractic, anti-inflammatories, heat, ice, stretching without relief. Reports pain is worse after he has been walking a lot. Reports is currently a 2 by the end the day it may be an 8. He denies loss of bowel or bladder function, perianal anesthesia, weakness in any extremity, abdominal pain, fever. MD elicited complaint: back pain Related Data Home Medications Medication Instructions Recorded Confirmed acetaminophen 300 mg-codeine 30 mg 1 tablet PO Q4H PRN Back Pain 04/16/19 02/10/23 tablet (Tylenol-Codeine #3) tamsulosin 0.4 mg capsule 0.4 mg PO DIRECTED 02/10/23 02/10/23 Allergies Allergy/AdvReac Type Severity Reaction Status Date / Time No Known Allergies Allergy Verified 02/10/23 11:00 Review of Systems Review of Systems: CONSTITUTIONAL: Denies malaise, chills, sweats, or fever. CARDIOVASCULAR: Denies chest pain, palpitations, or edema. RESPIRATORY: Denies cough or dyspnea. GASTROINTESTINAL: Denies abdominal pain, nausea, vomiting, diarrhea, loss of bowel function GENITOURINARY: Denies dysuria, hematuria, frequency, loss of bladder function. SKIN: Denies rash or itching. MUSCULOSKELETAL: Reports right low back pain and right hip pain NEUROLOGIC: Denies numbness, weakness, or headache. All systems reviewed & are unremarkable except as noted in HPI and below PMFSH Past Medical History Medical History (Updated 02/10/23 @ 11:15 by Nisha Sylvester NP) Chronic back pain Disc disorder of lumbar region Family History Family History (System 10/23/20 @ 10:51 by Gaby Seals) Mother Lung cancer Father Liver cirrhosis Social History Social History (System 10/23/20 @ 10:51 by Gaby Gómez Smoking status: Never smoker Comments At time of signature, agree with nursing past medical, surgical, social and family history. There is no relevant family history pertinent to the presenting complaint Exam Narrative: GENERAL: Well-appearing, well-nourished, and in no acute distress. HEAD: Normocephalic, atraumatic. EYES: PERRLA and EOMI. NECK: Supple. No lymphadenopathy. CHEST: Clear to auscultation. No respiratory distress. HEART: Regular rate and rhythm. Distal pulses palpable and equal, cap refill <3 seconds ABDOMEN: Soft, nontender, nondistended, normal active bowel sounds, no palpable or pulsatile masses. No CVA tenderness MUSCULOSKELETAL: Normal range of motion and strength in all extremities; 5/5 strength with hip flexion and extension, dorsiflexion and extension, knee flexion and extension, plantar flexion and extension. Normal sensation in dermatomal distributions with sensitivity to light touch and pain. No midline back tenderness to palpation. No paraspinal tenderness. Transfers from lying to sitting to standing. SKIN: Warm, dry, no rash. No ecchymosis, erythema, open wounds to back. NEURO: No focal deficits. Alert and oriented x3. Reflexes intact. Normal gait. PSYCH: Normal mood and affect Course Course Emergency Course: Patient is aware of diagnosis, understands and agrees to treatment plan. Anticipatory guidance given. Patient agrees to follow-up as directed and is aware of reasons to seek care at the emergency department. Portions of this record may have been created with voice recognition software Level of Care: Express Care Visit Vital Signs Vital signs: Reviewed. MDM - Back Pain/Injury MDM Narrative Medical decision ma
[2023-02-10 10:45] VITALS: BP 148/82; PULSE 63; RESP 16; TEMP 36.3; O2SAT 100
[2023-02-10] MEDS: methylPREDNISolone SOD SUCC 125 MG VIAL IM (11:24)
== END 2023-02-10 11:33 | disposition home or self-care (01) ==
PROVIDERS: Emergency Provider Nurse Practitioner
DX: G89.29 Other chronic pain (principal); M54.50 Low back pain, unspecified
CPT/HCPCS: 96372; 99213; G0463; J2930

== ENCOUNTER 2023-05-12 02:28 | Day surgery (SDC) | payer BC, SELFPAY ==
[2023-05-05 08:55] VITALS: BMI 28.0
--- NOTE | 2023-05-10 09:55 | SUR.PREOP ---
Patient called regarding upcoming procedure. Reviewed preop instructions, appointment times and procedure prep.
[2023-05-12 06:22] VITALS: BP 121/71; PULSE 59; RESP 18; TEMP 36.1; O2SAT 97
[2023-05-12] MEDS: LACTATED RINGERS 1,000 ML 150 ML IV CONT (06:34)
--- NOTE | 2023-05-12 07:16 | WPDANESEPPF ---
Anes - Initial Pre Proc Eval Procedure: Operation Date: 05/12/23 07:30 Proposed Procedures p Screening Colonoscopy - Luca Newton MD Date/Time: 05/12/23 07:16 Surgeon: Luca Newton MD Pre Op Diagnosis: neoplasm screening Patient Data Age: 62 Gender: M Height: 1.75 m Weight: 87.3 kg Last Vital Signs Temp 97 F L 05/12/23 06:22 Pulse 59 L 05/12/23 06:22 Resp 18 05/12/23 06:22 BP 121/71 05/12/23 06:22 Pulse Ox 97 05/12/23 06:22 O2 Del Method Room Air 05/12/23 06:22 Allergies Allergy/AdvReac Type Severity Reaction Status Date / Time No Known Allergies Allergy Verified 05/12/23 06:18 Home Medications Medication Instructions Recorded Confirmed Type acetaminophen 300 mg-codeine 30 mg 1 tablet PO Q4H PRN Back Pain 04/16/19 05/05/23 History tablet (Tylenol-Codeine #3) tamsulosin 0.4 mg capsule 0.4 mg PO HS 02/10/23 05/05/23 History celecoxib 200 mg capsule 200 mg PO HS 05/05/23 05/05/23 History cetirizine 10 mg tablet (Zyrtec) 10 mg PO HS 05/05/23 05/05/23 History mecobalamin (vitamin B12) 1,000 1,000 mcg PO HS 05/05/23 05/05/23 History mcg chewable tablet Patient hx anesthesia problems: none Family hx anesthesia problems: none Results Review: All pre-operative results and documents have been reviewed as part of the pre-operative evaluation. FORMERLY [facility], [facility] Past Medical History Medical History (Updated 02/10/23 @ 11:15 by Nisha Sylvester NP) Chronic back pain Disc disorder of lumbar region Family History Family History (System 10/23/20 @ 10:51 by Gaby Seals) Mother Lung cancer Father Liver cirrhosis Social History Social History (System 10/23/20 @ 10:51 by Gaby Seals) Smoking status: Never smoker Alcohol intake: current Substance use: never Substance use type: does not use Living arrangements: with family Spiritual care concerns: No Anes - Eval Final PreProcedure Day of Procedure 05/12/23 07:16 Patient weight: normal Heart: regular rate and rhythm Lungs: clear to auscultation Airway: Mallampati scale class II Neurological: alert and oriented Last oral intake: >/= 8 hours ASA classification: II Emergent: no Anesthetic plan: proceed Anesthesia type and monitoring: general GIVS and standard monitoring Results Review: All pre-operative results and documents have been reviewed as part of the pre-operative evaluation. Informed Consent: The patient's anesthetic plan and its attendant risks and benefits were discussed with the patient/family/POA. Questions were solicited and answers provided to the satisfaction of the patient/family/POA.
--- NOTE | 2023-05-12 07:26 | PM.HPGS ---
History of Present Illness History of Present Illness Consent: Risks, benefits, and alternatives have been discussed and questions answered. Patient agrees to proceed with procedure. Chief complaint: neoplasm screening Narrative: John Queen is a 62 year old male here for screening colonoscopy, last one 2009 Review of Systems Review of Systems: All systems reviewed & are unremarkable except as noted in HPI and below [facility] Past Medical History Medical History (Updated 05/12/23 @ 07:26 by Luca Newton MD) Chronic back pain Colon cancer screening Disc disorder of lumbar region Family History Family History (System 10/23/20 @ 10:51 by Gaby Seals) Mother Lung cancer Father Liver cirrhosis Social History Social History (System 10/23/20 @ 10:51 by Gaby Seals) Smoking status: Never smoker Alcohol intake: current Substance use: never Substance use type: does not use Living arrangements: with family Spiritual care concerns: No Meds Home Medications and Allergies Home Medications Medication Instructions Recorded Confirmed Type acetaminophen 300 mg-codeine 30 mg 1 tablet PO Q4H PRN Back Pain 04/16/19 05/05/23 History tablet (Tylenol-Codeine #3) tamsulosin 0.4 mg capsule 0.4 mg PO HS 02/10/23 05/05/23 History celecoxib 200 mg capsule 200 mg PO HS 05/05/23 05/05/23 History cetirizine 10 mg tablet (Zyrtec) 10 mg PO HS 05/05/23 05/05/23 History mecobalamin (vitamin B12) 1,000 1,000 mcg PO HS 05/05/23 05/05/23 History mcg chewable tablet Allergies Allergy/AdvReac Type Severity Reaction Status Date / Time No Known Allergies Allergy Verified 05/12/23 06:18 Vital Signs Vital Signs - 24 hr 05/12/23 06:22 Temperature 97 F L Pulse Rate 59 L Respiratory Rate 18 Blood Pressure 121/71 Pulse Oximetry 97 Oxygen Delivery Room Air Exam Const: General: comfortable and no acute distress HENMT: Face/Nose/Sinus: Normal nares present Eyes: General: appearance normal, both eyes and all related structures Neck: Neck: no JVD Resp: Auscultation: clear to auscultation bilaterally Cardio: Rate: regular rate Rhythm: regular rhythm GI: Inspection: non-distended GI Palp: Yes Soft to palpation Skin: General skin exam: normal color Neuro: General: gait normal Speech: normal speech Extrem: General: normal to inspection Psych: Mental Status: mental status grossly normal Assessment and Plan Assessment and plan (1) Colon cancer screening: Code(s): Z12.11 - Encounter for screening for malignant neoplasm of colon Status: Acute Assessment and Plan: colonoscopy
[2023-05-12 07:49] VITALS: BP 99/63; PULSE 53; RESP 19; O2SAT 98
[2023-05-12 07:59] VITALS: BP 117/74; PULSE 54; RESP 20; O2SAT 100
[2023-05-12 08:09] VITALS: BP 127/77; PULSE 50; RESP 18; O2SAT 100
--- NOTE | 2023-05-12 08:13 | SUR.PHASEII ---
Patient's heart rate running in the 50's. Patient states his heart rate runs lower. Dr. Menendez aware and okay for discharge.
== END 2023-05-12 08:20 | disposition home or self-care (01) ==
PROVIDERS: PCP Internal Medicine; Visit Provider Internal Medicine Gastroenterology
PROC: 0DJD8ZZ Inspection of Lower Intestinal Tract, Via Natural or Artificial Opening Endoscopic (ICD-10-PCS; CPT 45378; principal; 2023-05-12 07:30)
DX: Z12.11 Encounter for screening for malignant neoplasm of colon (principal)
CPT/HCPCS: 45378; J2704; J7120

== ENCOUNTER 2023-07-22 07:08 | Outpatient (CLI) | payer MEDICARE, SELFPAY ==
[2023-07-22 07:24] LABS: Basophils Absolute Auto 0.04 K/mm3 (0.00-0.10); Basophils Percent Auto 0.7 % (0.0-1.0); Eosinophils Absolute Auto 0.28 K/mm3 (0.02-0.50); Eosinophils Percent Auto 4.9 % (1.0-6.0); Hematocrit 42.5 % (37.0-46.0); Hemoglobin 13.6 g/dL (12.4-15.3); Immature Granulocyte Absolute 0.02 K/mm3 (0.00-0.00); Immature Granulocyte Percent A 0.3 % (0.0-0.0); Lymphocytes Absolute Auto 1.97 K/mm3 (1.10-4.50); Lymphocytes Percent Auto 34.3 % (18.0-42.0); Mean Corpuscular Hemoglobin 29.3 pg (27.0-31.0); Mean Corpuscular Volume 91.6 fL (78.0-102.0); Mean Platelet Volume 9.3 fl (8.7-11.0); Monocytes Absolute Auto 0.35 K/mm3 (0.10-0.90); Monocytes Percent Auto 6.1 % (2.0-11.0); Neutrophils Absolute Auto 3.08 K/mm3 (1.70-7.20); Neutrophils Percent Auto 53.7 % (50.0-70.0); Platelet Count Result 230 K/mm3 (150-420); Red Blood Count 4.64 M/mm3 (4.70-6.10); Red Cell Distribution Width 12.6 % (11.6-14.4); White Blood Count 5.7 K/mm3 (4.8-10.8)
[2023-07-22 07:28] LABS: Appearance Urine Clear (Clear); Bilirubin Urine Negative (Negative); Blood Urine Negative (Negative); Color Urine Light Yellow (Yellow); Glucose Urine UA Negative (Negative); Ketones Urine Negative (Negative); Leukocyte Esterase Ur Negative (Negative); Nitrate Urine Negative (Negative); Protein Urine Negative (Negative); pH Urine 6.5 (5.0-8.0)
[2023-07-22 07:33] LABS: Add Urine Microscopic? NO
[2023-07-22 07:47] LABS: Hemoglobin A1C 5.9 % (<5.7)
[2023-07-22 08:32] LABS: Alanine Aminotransferase 36 U/L (16-63); Albumin Level 3.8 g/dL (3.4-5.0); Alkaline Phosphatase 50 U/L (46-116); Anion Gap 10 mmol/L (4-12); Aspartate Amino Transferase 20 U/L (15-37); Bilirubin,Total 0.7 mg/dL (0.00-1.00); Blood Urea Nitrogen 22 mg/dL (7-18); Calcium 8.9 mg/dL (8.5-10.1); Carbon Dioxide 28 mmol/L (21-32); Chloride 105 mmol/L (98-108); Cholesterol 197 mg/dL (0-200); Estimated Glomerular Filt Rate > 60; Free T4 Free Thyroxine 0.84 ng/dL (0.76-1.46); Glucose 113 mg/dL (70-99); HDL Direct 38 mg/dL (40-60); LDL Cholesterol Calculated 136 mg/dL (<130); Osmolality Calculated 300 mOsm/kg (285-295); Potassium 4.9 mmol/L (3.5-5.1); Prostate Specific Antigen 1.5 ng/mL (< OR = 4.0); Sodium 143 mmol/L (136-145); Thyroid Stimulating Hormone 2.04 uIU/mL (0.36-3.74); Triglycerides 117 mg/dL (0-150); Vitamin B12 988 pg/mL (193-986)
[2023-07-22 16:34] LABS: Free T3 2.68 pg/mL (2.18-3.98)
== END 2023-07-22 07:09 | disposition home or self-care (01) ==
LOC: CHSLAB 07:14
PROVIDERS: PCP Internal Medicine; Visit Provider Internal Medicine
DX: R73.01 Impaired fasting glucose (principal); R20.2 Paresthesia of skin; E78.2 Mixed hyperlipidemia; Z12.5 Encounter for screening for malignant neoplasm of prostate
CPT/HCPCS: 36415; 80053; 80061; 81003; 82607; 83036; 84153; 84439; 84443; 84481; 85025; G0103

== ENCOUNTER 2023-07-27 07:36 | Outpatient (RCR) | payer MEDICARE, SELFPAY ==
--- NOTE | 2023-07-27 10:17 | OPREHPOC ---
Outpatient Therapy Plan of Care This is a Multidisciplinary Plan of Care that may contain components documented by all disciplines (PT, OT, and ST.) PT Problem 1 PT Problem #1 Knowledge Deficit PT Goal 1 Goal The patient will be independent in a home exercise program. Target Visit 4 PT Problem 2 PT Problem #2 Pain PT Goal 1 Goal The patient will report no greater than 3/10 hip and back pain with ADLs. Target Visit 12 PT Problem 3 PT Problem #3 Impaired Range of Motion PT Goal 1 Goal The patient will demonstrate improved lumbar flexion AROM to the ankles to improve ability to dress the LE. Target Visit 12 PT Problem 4 PT Problem #4 Impaired Strength PT Goal 1 Goal 1. The patient will demonstrate the ability to lift 20# from floor to waist with good body mechanics. 2. The patient will demonstrate 5/5 bilateral hip strength to improve ability to perform heavier house/yard work. Target Visit 12 PT Problem 5 PT Problem #5 Impaired Functional Mobil PT Goal 1 Goal 1. The patient will demonstrate less than 25% self perceived disability per the Back Index. 2. The patient will demonstrate the ability to ambulate 1,000 feet during the 6 minute walk test with 2/10 or less back and hip pain. Target Visit 12
--- NOTE | 2023-07-27 10:18 | PTOPEVAL1 ---
Assessment and note entered by Shannon Rojas, PT Evaluation Information Assessment Status Evaluation Diagnosis lumbar spondylosis, bilateral hip pain Onset 07/23/23 Subjective Information John Queen reports he has been having bilateral hip/groin pain for about 6 months. He was having pain in the right groin with prolonged standing and walking causing him to take rest breaks. He has a history of chronic back pain for 40 years controlled with therapy. He tried pain management with a SI injection that helped a little bit. But he was having a lot of tension and tightness in the front of the hips and pelvis. He had a CT scan that showed 3 hernias, one abdominal and 2 inguinal, and he had them repaired on 06/18/23. He notes the sharp pain he had before has diminished. 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 He notes he locked up again and had to rest. He has been doing some aquatic therapy and stretching on his own. He had a MRI about 1.5 years ago that showed L3-4, L4-5, and L5-S1 was herniated and he has arthritis. He also had recent x-rays of both hips that showed moderate bilateral hip osteoarthritis. Pain is now concentrated on the front of both hips and back of the right hip. He is able to stand from sitting easier. He is avoiding ladders, using a chainsaw, using a shovel, and lifting because of the pain. He was released by the hernia surgeon with a 20# lifting restriction for at least 6 weeks. Reported Pain Level Pain Score 2: Self Report Assessment PT Clinical Summary John Queen presents with low back and bilateral hip pain. He has had chronic low back pain for 40+ years and was diagnosed with herniated discs at L3-4, L4-5, and L5-S1. He also was diagnosed with inguinal hernias bilaterally and an abdominal hernia and underwent repair for them on 06/18/23. Recent x-rays also showed moderated bilateral hip osteoarthritis. He is reporting pain in the front of both hips and back of the right hip. He notes difficulty with standing from sitting as well as prolonged standing and walking. He also is avoiding lifting and heavy yard work due to his hernia surgery. He objectively demonstrates decreased lumbar AROM; decreased hip internal rotation AROM; decreased hamstring, quadriceps, and piriformis flexibi
--- NOTE | 2023-10-20 08:16 | PTOPDC ---
Assessment and note entered by Shannon Rojas, PT Evaluation Information Assessment Status Discharge - Pt Not Presen Diagnosis lumbar spondylosis, bilateral hip pain Onset 07/23/23 Subjective Information Pt not present for discharge summary. He was reporting overall less pain on his last visit on . Assessment PT Clinical Summary John Queen completed 6 skilled PT visits for lumbar spondylosis and bilateral hip pain. He was not present for his discharge but was reporting overall less pain since initiating PT. He was last seen on 08/11/23. He will be discharged. Plan of Care PT Services Indicated No
== END 2023-08-11 08:45 | disposition home or self-care (01) ==
LOC: CHSPT 07:36
PROVIDERS: Visit Provider Chiropractor
DX: M47.816 Spondylosis without myelopathy or radiculopathy, lumbar region (principal)
CPT/HCPCS: 97014; 97110; 97112; 97140; 97161; G0283

== ENCOUNTER 2024-02-17 07:57 | Outpatient (RCR) | payer MEDICARE, SELFPAY ==
--- NOTE | 2024-02-17 08:55 | OPREHPOC ---
Outpatient Therapy Plan of Care This is a Multidisciplinary Plan of Care that may contain components documented by all disciplines (PT, OT, and ST.) PT Goal 1 Goal / Goal Update 1. independent and compliant with HEP Target Visit 6 PT Problem 2 PT Problem #2 Pain PT Goal 1 Goal / Goal Update 1. patient to report 25% reduction in hip pain at worst at the end of the day. Target Visit 12 PT Problem 3 PT Problem #3 Impaired Strength PT Goal 1 Goal / Goal Update 1. 4+/5 or better bilateral hip strength Target Visit 12 PT Problem 4 PT Problem #4 Impaired Gait PT Goal 1 Goal / Goal Update 1. patient to ambulate 10 minutes in clinic with steady pace, no increased trenelenburg, and no increased pain Target Visit 12 PT Problem 5 PT Problem #5 Impaired Functional Mobility PT Goal 1 Goal / Goal Update 1. LEFS to display 40% or less functional deficits 2. patient to complete 2 hours of standing work at home without rest or increased hip pain. Target Visit 12
--- NOTE | 2024-02-17 08:55 | PTOPEVAL1 ---
Assessment and note entered by JT File, PT Evaluation Information Assessment Status Evaluation ICD-10 Condition Codes (PT) Pain in right hip M25.551,Pain in left hip M25.552 Onset 02/10/24 Subjective Information patient reports he is having pain in the bilateral hips, but reports his R hip will give out sooner than his L hip. he reports the pain gets worse the more he is up on his feet and later in the day. he reports he will limp on the R more than the L, and reports the pain is in the front of the R hip near the groin. he has had xrays of the bilateral hips that he reports shows moderate arthritis with dysplasia. he reports he is scheduled to have hip injections on both hips in February, and does not follow up with the ortho for 3 months. Reported Pain Level Pain Score 3,1: Self Report Assessment PT Clinical Summary mr. anderson is a 63 yo man who presents to skilled PT for evaluation and treatment of bilateral hip pain. the R hip appears to be worse than the L upon testing and examination today. bilaterally, he presents with weakness of the hips, decreased rom, and pain (especially groin pain). he would benefit from continued skilled PT to improve his objective/functional deficits to allow patient to return to prior level functional activities and quality of life. Plan of Care Interventions Electrical Stimulation,Gait Training,Hot Pack/Cold Pack,Manual Therapy,Neuro Re-education,Patient/ Caregiver Education,Therapeutic Activities, Therapeutic Exercise,Self-Care/Home Management PT Services Indicated Yes Treatment Frequency and 2x weekly for 12 visits Duration These treatments will address the objective and functional deficits as defined above. The patient will be advanced safely and appropriately in order for the patient to progress towards his/her prior level of function. Additional exercises will be introduced and as well as a comprehensive home exercise program upon discharge, if needed, ?to ensure carryover of functional gains achieved in the clinic. This treatment plan has been reviewed and agreement upon by the patient.
--- NOTE | 2024-02-24 07:29 | PCPTNOTE ---
Patient called & cancelled scheduled appointment this date due to [unknown]
--- NOTE | 2024-03-15 15:30 | OPREHPOC ---
Outpatient Therapy Plan of Care This is a Multidisciplinary Plan of Care that may contain components documented by all disciplines (PT, OT, and ST.) PT Problem 1 PT Problem #1 Knowledge Deficit PT Goal 1 Goal / Goal Update 1. independent and compliant with HEP Target Visit 6 Progress Met PT Problem 2 PT Problem #2 Pain PT Goal 1 Goal / Goal Update 1. patient to report 25% reduction in hip pain at worst at the end of the day. met recently Target Visit 12 Progress Partially Met PT Problem 3 PT Problem #3 Impaired Strength PT Goal 1 Goal / Goal Update 1. 4+/5 or better bilateral hip strength Target Visit 12 PT Problem 4 PT Problem #4 Impaired Gait PT Goal 1 Goal / Goal Update 1. patient to ambulate 10 minutes in clinic with steady pace, no increased trenelenburg, and no increased pain Target Visit 12 PT Problem 5 PT Problem #5 Impaired Functional Mobility PT Goal 1 Goal / Goal Update 1. LEFS to display 40% or less functional deficits 2. patient to complete 2 hours of standing work at home without rest or increased hip pain. Target Visit 12
--- NOTE | 2024-03-15 15:31 | PTOPPROGNS ---
Assessment and note entered by JT File, PT Evaluation Information Assessment Status Progress ICD-10 Condition Codes (PT) Pain in right hip M25.551,Pain in left hip M25.552 Onset 02/10/24 Subjective Information patient reports the R hip feels better the last few days after having an injection to the both hips. he reports he does not follow up with Dr. Currie for a couple months. he reports he has noticed more fatigue in the R hip rather than true pain. Assessment PT Clinical Summary mr. anderson has recently had an injection to his bilateral hips. this injections combined with his therapy has him feeling good and progressing towards all goals. he displays improved gait mechanics and less pain overall today. continued skilled PT is indicated to achieve his remaining goals and improve his functional activity performance. Plan of Care Interventions Electrical Stimulation,Gait Training,Hot Pack/Cold Pack,Manual Therapy,Neuro Re-education,Patient/ Caregiver Education,Therapeutic Activities, Therapeutic Exercise,Self-Care/Home Management PT Services Indicated Yes Treatment Frequency and continue per initial POC Duration These treatments will address the objective and functional deficits as defined above. The patient will be advanced safely and appropriately in order for the patient to progress towards his/her prior level of function. Additional exercises will be introduced and as well as a comprehensive home exercise program upon discharge, if needed, ?to ensure carryover of functional gains achieved in the clinic. This treatment plan has been reviewed and agreement upon by the patient.
--- NOTE | 2024-03-29 11:12 | OPREHPOC ---
Outpatient Therapy Plan of Care This is a Multidisciplinary Plan of Care that may contain components documented by all disciplines (PT, OT, and ST.) PT Problem 1 PT Problem #1 Knowledge Deficit PT Goal 1 Goal / Goal Update 1. independent and compliant with HEP Target Visit 6 Progress Met PT Problem 2 PT Problem #2 Pain PT Goal 1 Goal / Goal Update 1. patient to report 25% reduction in hip pain at worst at the end of the day. met recently Target Visit 12 Progress Met PT Goal 2 Goal / Goal Update 1. patient to report no more than 2/10 pain at worst in the anterior R hip Target Visit 18 PT Problem 3 PT Problem #3 Impaired Strength PT Goal 1 Goal / Goal Update 1. 4+/5 or better bilateral hip strength Target Visit 18 Progress Partially Met PT Problem 4 PT Problem #4 Impaired Gait PT Goal 1 Goal / Goal Update 1. patient to ambulate 10 minutes in clinic with steady pace, no increased Trendelenburg, and no increased pain. met for pain and mechanics, but patient still has pain. Target Visit 18 Progress Partially Met PT Problem 5 PT Problem #5 Impaired Functional Mobility PT Goal 1 Goal / Goal Update 1. LEFS to display 40% or less functional deficits . met 2. patient to complete 2 hours of standing work at home without rest or increased hip pain. Target Visit 12 Progress Met PT Goal 2 Goal / Goal Update 1. patient to be able to transition from standing and working to walking and back to standing and working without pain Target Visit 18
--- NOTE | 2024-03-29 11:12 | PTOPREEVAL ---
Assessment and note entered by JT File, PT Evaluation Information Assessment Status Re-evaluation ICD-10 Condition Codes (PT) Pain in right hip M25.551,Pain in left hip M25.552 Onset 02/10/24 Subjective Information patient has orders from his MD on 03/16/24 to continue skilled PT for his bilateral hips. he reports since the injection he has felt much better. he reports the R hip still bothers him more than the L hip. he reports walking is the worst thing for him still. he reports he is able to stand without increased pain, but once he walks he feels pain in the front of the R hip with the leg trailing him. Reported Pain Level Pain Score 0,1: Self Report Assessment PT Clinical Summary mr. anderson presents to skilled PT for his 12th skilled PT visit for bilateral hip pain. he presents today and over the last couple weeks since his injection with less pain. however, he still presents with anterior R hip pain with walking, pain with palpation of the anterior R hip , and weakness of the R hip. continued skilled PT is indicated to address these remaining objective/ functional deficits and return to his prior level functional activity performance/quality of life. Plan of Care Interventions Gait Training,Hot Pack/Cold Pack,Manual Therapy, Neuro Re-education,Patient/Caregiver Education, Therapeutic Activities,Therapeutic Exercise,Self- Care/Home Management PT Services Indicated Yes Treatment Frequency and continue skilled PT 2x weekly for 6 more visits Duration These treatments will address the objective and functional deficits as defined above. The patient will be advanced safely and appropriately in order for the patient to progress towards his/her prior level of function. Additional exercises will be introduced and as well as a comprehensive home exercise program upon discharge, if needed, ?to ensure carryover of functional gains achieved in the clinic. This treatment plan has been reviewed and agreement upon by the patient.
== END 2024-05-17 23:59 | disposition home or self-care (01) ==
LOC: CHSPT 07:57
PROVIDERS: Visit Provider Orthopaedic Surgery
DX: M16.0 Bilateral primary osteoarthritis of hip (principal)
CPT/HCPCS: 97014; 97110; 97140; 97161; 97530; G0283

== ENCOUNTER 2024-06-01 08:11 | Outpatient (RCR) | payer MEDICARE, SELFPAY ==
--- NOTE | 2024-06-01 08:36 | OPREHPOC ---
Outpatient Therapy Plan of Care This is a Multidisciplinary Plan of Care that may contain components documented by all disciplines (PT, OT, and ST.) PT Problem 1 PT Problem #1 Knowledge Deficit PT Goal 1 Goal / Goal Update 1. independent and compliant with HEP Target Visit 6 Progress Met PT Problem 2 PT Problem #2 Pain PT Goal 1 Goal / Goal Update 1. patient to report 25% reduction in hip pain at worst at the end of the day. met recently Target Visit 12 Progress Not Met PT Goal 2 Goal / Goal Update 1. patient to report no more than 2/10 pain at worst in the anterior R hip Target Visit 18 Progress Not Met PT Problem 3 PT Problem #3 Impaired Strength PT Goal 1 Goal / Goal Update 1. 4+/5 or better bilateral hip strength Target Visit 18 Progress Not Met PT Problem 4 PT Problem #4 Impaired Gait PT Goal 1 Goal / Goal Update 1. patient to ambulate 10 minutes in clinic with steady pace, no increased Trendelenburg, and no increased pain. met for pain and mechanics, but patient still has pain. Target Visit 18 Progress Not Met PT Problem 5 PT Problem #5 Impaired Functional Mobility PT Goal 1 Goal / Goal Update 1. LEFS to display 40% or less functional deficits . met 2. patient to complete 2 hours of standing work at home without rest or increased hip pain. Target Visit 12 Progress Not Met PT Goal 2 Goal / Goal Update 1. patient to be able to transition from standing and working to walking and back to standing and working without pain Target Visit 18 Progress Not Met
--- NOTE | 2024-06-01 08:36 | PTOPDC ---
Assessment and note entered by JT File, PT Evaluation Information Assessment Status Discharge ICD-10 Condition Codes (PT) Pain in right hip M25.551,Pain in left hip M25.552 Onset 02/10/24 Subjective Information patient has been away from therapy for over a month. he was on a trip with his . he reports during this trip one day he was on a ladder for a long time cleaning windows on their camper. he reports this significant flared up his shoulder pain. from then on, he was in pain most of the trip. he is now planning to have his last injection to get through the next few months, and then have his hip replaced in august. he reports he is able to do all of his exercises at home, and plans to get back to his HEP routine now that he is home from his trip. he reports over his trip he had to seek healthcare management consultant for his hip pain. he reports at this point he does not believe any sort of therapy will be beneficial until after his hip replacement. Reported Pain Level Pain Score 0,3: Self Report Pain Score 0,0: Self Report Assessment PT Clinical Summary mr. anderson presents to skilled PT for his 17th skilled PT visit for his R hip. he presents to skilled PT today after a month an a half away from therapy on a trip. his hip is more flared up and he displays a little regression in strength. he is having an injection to the R hip this coming week , and planning to have R hip replacement in August. at this time, he will DC skilled PT to an independent [facility] as he awaits injection and replacement. he was told to reach out and follow up with PT if any injuries or flare ups occur that impede his ambulation and function more between now and surgery. Plan of Care PT Services Indicated Yes
== END 2024-06-01 20:00 | disposition home or self-care (01) ==
LOC: CHSPT 08:11
PROVIDERS: Visit Provider Orthopaedic Surgery
DX: M16.0 Bilateral primary osteoarthritis of hip (principal)
CPT/HCPCS: 97110

== ENCOUNTER 2024-06-06 07:08 | Outpatient (CLI) | payer MEDICARE, SELFPAY ==
--- OUTSIDE RECORDS SUMMARY | 2024-06-06 07:11 | XMS_ITS | Referral Summary ---
Author Organization [facility] Medical Office Building B Address [address] [place] [address] Care Team Providers Care General Ophthalmologist Name Role Phone Tennille Newsome MD Primary Care Provider Encounters Date Type Department Care Team Description 06/01/2024 Orders Only [facility] Medicine [address] [place] [address] [address] [place] [address] Mariela Reyes PA Primary osteoarthritis of right hip (Primary Dx); Primary osteoarthritis of left hip 2024 Telephone [facility] Orthopedics and Sports Medicine [address] [place] [address] [address] [place] [address] Ralph Currie MD 05/30/2024 Telephone [facility] Orthopedics and Sports Medicine [address] [place] [address] [address] [place] [address] Ralph Currie MD 05/16/2024 8:45 AM CDT Office Visit [facility] Orthopedics and Sports Medicine [address] [place] [address] [address] [place] [address] Ralph Currie MD Primary osteoarthritis of right hip (Primary Dx); Primary osteoarthritis of left hip 03/16/2024 Orders Only [facility] Orthopedics and Sports Medicine [address] [place] [address] [address] [place] [address] Ralph Currie MD Bilateral primary osteoarthritis of hip (Primary Dx); Primary osteoarthritis of right hip; Primary osteoarthritis of left hip 03/08/2024 8:28 AM DISASTER DIRECTOR - 03/08/2024 11:59 PM DISASTER DIRECTOR Hospital Encounter [facility] [address] [place] [address] Rad, Amh Fluoro Primary osteoarthritis of right hip Discharge Disposition: Discharge to home or self care 03/08/2024 8:28 AM DISASTER DIRECTOR - 03/08/2024 11:59 PM DISASTER DIRECTOR Hospital Encounter [facility] [address] [place] [address] Rad, Amh Fluoro Primary osteoarthritis of left hip Discharge Disposition: Discharge to home or self care from Last 3 Months Allergies No known active allergies Medications tamsulosin (FLOMAX) 0.4 mg extended release capsule 1 capsule (0.4 mg total) daily Active cetirizine (ZyrTEC) 10 mg tablet Take 1 tablet (10 mg total) by mouth daily Active cyanocobalamin/ folic acid (VITAMIN B95-XZKJN ACID ORAL) Take 1,000 mcg by mouth daily Active meloxicam (MOBIC) 15 mg tablet Take 1 tablet (15 mg total) by mouth daily 30 tablet 2 04/10/2024 Active Active Problems Problem Noted Date Diagnosed Date Pelvic pain 07/23/2023 Inguinal hernia without obstruction or gangrene 05/27/2023 Umbilical hernia without obstruction and without gangrene 05/27/2023 Right lower quadrant pain 04/20/2023 Encounter for screening colonoscopy 04/08/2023 Spondylosis of lumbar region without myelopathy or radiculopathy 02/23/2023 Sacroiliac joint dysfunction 02/23/2023 Sacroiliitis 02/23/2023 Lumbar radiculitis 02/23/2023 Gastroesophageal reflux disease 03/18/2018 Overview (03/18/2018): Added automatically from request for surgery [id number] Epigastric pain 03/18/2018 Overview (03/18/2018): Added automatically from request for surgery [id number] Resolved Problems Problem Noted Date Diagnosed Date Resolved Date Unilateral inguinal hernia w ithout obstruction or gangrene 05/13/2023 07/07/2023 Assessment & Plan (06/09/2023 11:19 AM CDT): Becoming more symptomatic to the right groin. We discussed robotic inguinal hernia repair with mesh, as well as post operative phase. He is understanding and agreeable. Social History Tobacco Use Types Packs/Day Years Used Date Smoking Tobacco: Never Smokeless Tobacco: Never Alcohol Use Standard Drinks/Week Comments Yes 0 (1 standard drink = 0.6 oz pur e alcohol) occasionally AUDIT-C Answer Date Recorded Q1: How often do you have a drink containing alcohol? Never 06/18/2023 Q2: How many drinks containi ng alcohol do you have on a typical day when you are drinking? Patient does not drink Frequency of Binge Drinking Not on file 05/24 Personal Safety Answer Date Recorded Have you ever been in or are you currently in a harmful physical or emotional relationship or is someone making you feel afraid or unsafe? Denies 06/18/2023 Sex and Gender Information Value Date Recorded Sex Assigned at Not on file Legal Sex Male 11:53 PM DISASTER DIRECTOR Gender Identity Not on file Sexual Orientation Not on file Last Filed Vital Signs Vital Sign Reading Time Taken Comments Blood Pressure 142/84 05/16/2024 8:45 AM CDT Pulse 70 05/16/2024 8:45 AM CDT Temperature 36.3 C (97.3 F) 06/30/2023 9:25 AM CDT Respiratory Rate 18 06/18/2023 1:26 PM CDT Oxygen Saturation 98% 06/30/2023 9:25 AM CDT Inhaled Oxygen Concentration - - Weight 88.9 kg (196 lb) 05/16/2024 8:45 AM CDT Height 171.5 cm (5' 7.5 ) 05/16/2024 8:45 AM CDT Body Mass Index 30.24 05/16/2024 8:45 AM CDT Plan of Treatment Not on file Medical Devices Implanted Type Area Filler Feeder Device Identifier Shelf Expiration Date Model / Serial / Lot Med[employer]onic [employer] Progrip 15x9cm Self Fruit Cutter Rectangle Mesh Surgical Polyester Hernia [id number] - [id number] Implanted:Qty: 1 on 06/18/2023 by Zoltan Garvey MD at [facility] Left: Abdomen [employer] 09/22/2027 [id number] / / [id number] [employer] Progrip 15x9cm Self Fruit Cutter Rectangle Mesh Surgical Polyester Hernia [id number] - [id number] Implanted:Qty: 1 on 06/18/2023 by Zoltan Garvey MD at [facility] Right: Abdomen [employer] 09/22/2027 [id number] / / [id number] Procedures Procedure Name Priority Date/Time Associated Diagnosis Comments FL FLUORO GUIDED INJECTION HIP LEFT Schedule Routine, Read Routine (OP Routine) 03/08/2024 9:24 AM DISASTER DIRECTOR Primary osteoarthritis of left hip FLUORO GUIDED INJECTION HIP RIGHT Schedule Routine, Read Routine (OP Routine) 03/08/2024 9:23 AM DISASTER DIRECTOR Primary osteoarthritis of right hip from Last 3 Months Results * FL Fluoro Guided Injection Hip Left (03/08/2024 9:24 AM DISASTER DIRECTOR) Anatomical Region Laterality Modality Hip Left Radio Fluoroscop y 03/08/2024 2:27 PM DISASTER DIRECTOR Narrative 03/08/2024 2:30 PM DISASTER DIRECTOR EXAM DESCRIPTION: FL FLUORO GUIDED INJECTION HIP LEFT; FL FLUORO GUIDED INJECTION HIP RIGHT REASON FOR STUDY: pain Time: 20.2 sec Dose: 2.3704 mGy ; pain bilateral hip pain. COMPARISON: 01/31/2024 RADIATION DOSE: Needle placement was documented with a fluoroscopic image. Dose: 0.1042 mGycm? Dose Area Product (DAP) TECHNIQUE/FINDINGS: After informed consent including the risks, benefits, and alternatives, the patient was placed on the fluoroscopy table. The left hip was localized with fluoroscopy. After localization, the left hip was prepped and draped in usual sterile fashion. 1% lidocaine was utilized for local anesthetic. A 22-gauge spinal needle was advanced into the left hip joint from anterior approach. 1 mL of Omnipaque 240 was injected to confirm needle placement within the joint. After confirmation of needle placement, 4 mL of a solution of 3 mL ropivacaine and 1 mL Kenalog 40 mg was injected into the joint space under fluoroscopy. Subsequently the right hip was localized with fluoroscopy. After localization, the right hip was prepped and draped in usual sterile fashion. 1% lidocaine was utilized for local anesthetic. A 22-gauge spinal needle was advanced into the right hip joint from anterior approach. 1 mL of Omnipaque 240 was injected to confirm needle placement within the joint. After confirmation of needle placement, 4 mL of a solution of 3 mL ropivacaine and 1 mL Kenalog 40 mg was injected into the joint space under fluoroscopy. Hard copy images were obtained. The patient tolerated the procedure well. IMPRESSION: Technically successful fluoroscopic guided bilateral hip steroid injections THIS IS AN ELECTRONICALLY VERIFIED FINAL REPORT 03/08/2024 2:30 PM - Electronically signed by Belgica Monae D.O. PS: PS Report ID: [id number] Reading Location: [id number] Procedure Note Belgica Monae DO - 03/08/2024 EXAM DESCRIPTION: FL FLUORO GUIDED INJECTION HIP LEFT; FL FLUORO GUIDED INJECTION HIP RIGHT REASON FOR STUDY: pain Time: 20.2 sec Dose: 2.3704 mGy ; pain bilateral hip pain. COMPARISON: 01/31/2024 RADIATION DOSE: Needle placement was documented with a fluoroscopicimage. Dose: 0.1042 mGycm? Dose Area Product (DAP) TECHNIQUE/FINDINGS: After informed consent including the risks, benefits, and alternatives,the patient was placed on the fluoroscopy table. The left hip was localized with fluoroscopy. After localization, the lefthip was prepped and draped in usual sterile fashion. 1% lidocaine was utilizedfor local anesthetic. A 22-gauge spinal needle was advanced into the left hip joint from anterior approach. 1 mL of Omnipaque 240 was injected toconfirm needle placement within the joint. After confirmation of needle placement, 4 mL of a solution of 3 mLropivacaine and 1 mL Kenalog 40 mg was injected into the joint space underfluoroscopy. Subsequently the right hip was localized with fluoroscopy. Afterlocalization, the right hip was prepped and draped in usual sterile fashion. 1%lidocaine was utilized for local anesthetic. A 22-gauge spinal needle was advancedinto the right hip joint from anterior approach. 1 mL of Omnipaque 240 wasinjected to confirm needle placement within the joint. After confirmation of needle placement, 4 mL of a solution of 3 mLropivacaine and 1 mL Kenalog 40 mg was injected into the joint space underfluoroscopy. Hard copy images were obtained. The patient tolerated the procedurewell. IMPRESSION: Technically successful fluoroscopic guided bilateral hip steroidinjections THIS IS AN ELECTRONICALLY VERIFIED FINAL REPORT 03/08/2024 2:30 PM - Electronically signed by Belgica Monae D.O. PS: PS Report ID: [id number] Reading Location: [id number] Ralph Currie MD IMG FLUOROSCOPY PROCEDUR ES Final Result * FL Fluoro Guided Injection Hip Right (03/08/2024 9:23 AM DISASTER DIRECTOR) Anatomical Region Laterality Modality Hip Right Radio Fluoroscop y 03/08/2024 2:27 PM DISASTER DIRECTOR Narrative 03/08/2024 2:30 PM DISASTER DIRECTOR EXAM DESCRIPTION: FL FLUORO GUIDED INJECTION HIP LEFT; FL FLUORO GUIDED INJECTION HIP RIGHT REASON FOR STUDY: pain Time: 20.2 sec Dose: 2.3704 mGy ; pain bilateral hip pain. COMPARISON: 01/31/2024 RADIATION DOSE: Needle placement was documented with a fluoroscopic image. Dose: 0.1042 mGycm? Dose Area Product (DAP) TECHNIQUE/FINDINGS: After informed consent including the risks, benefits, and alternatives, the patient was placed on the fluoroscopy table. The left hip was localized with fluoroscopy. After localization, the left hip was prepped and draped in usual sterile fashion. 1% lidocaine was utilized for local anesthetic. A 22-gauge spinal needle was advanced into the left hip joint from anterior approach. 1 mL of Omnipaque 240 was injected to confirm needle placement within the joint. After confirmation of needle placement, 4 mL of a solution of 3 mL ropivacaine and 1 mL Kenalog 40 mg was injected into the joint space under fluoroscopy. Subsequently the right hip was localized with fluoroscopy. After localization, the right hip was prepped and draped in usual sterile fashion. 1% lidocaine was utilized for local anesthetic. A 22-gauge spinal needle was advanced into the right hip joint from anterior approach. 1 mL of Omnipaque 240 was injected to confirm needle placement within the joint. After confirmation of needle placement, 4 mL of a solution of 3 mL ropivacaine and 1 mL Kenalog 40 mg was injected into the joint space under fluoroscopy. Hard copy images were obtained. The patient tolerated the procedure well. IMPRESSION: Technically successful fluoroscopic guided bilateral hip steroid injections THIS IS AN ELECTRONICALLY VERIFIED FINAL REPORT 03/08/2024 2:30 PM - Electronically signed by Belgica Monae D.O. PS: PS Report ID: [id number] Reading Location: [id number] Procedure Note Belgica Monae, DO - 03/08/2024 EXAM DESCRIPTION: FL FLUORO GUIDED INJECTION HIP LEFT; FL FLUORO GUIDED INJECTION HIP RIGHT REASON FOR STUDY: pain Time: 20.2 sec Dose: 2.3704 mGy ; pain bilateral hip pain. COMPARISON: 01/31/2024 RADIATION DOSE: Needle placement was documented with a fluoroscopicimage. Dose: 0.1042 mGycm? Dose Area Product (DAP) TECHNIQUE/FINDINGS: After informed consent including the risks, benefits, and alternatives,the patient was placed on the fluoroscopy table. The left hip was localized with fluoroscopy. After localization, the lefthip was prepped and draped in usual sterile fashion. 1% lidocaine was utilizedfor local anesthetic. A 22-gauge spinal needle was advanced into the left hip joint from anterior approach. 1 mL of Omnipaque 240 was injected toconfirm needle placement within the joint. After confirmation of needle placement, 4 mL of a solution of 3 mLropivacaine and 1 mL Kenalog 40 mg was injected into the joint space underfluoroscopy. Subsequently the right hip was localized with fluoroscopy. Afterlocalization, the right hip was prepped and draped in usual sterile fashion. 1%lidocaine was utilized for local anesthetic. A 22-gauge spinal needle was advancedinto the right hip joint from anterior approach. 1 mL of Omnipaque 240 wasinjected to confirm needle placement within the joint. After confirmation of needle placement, 4 mL of a solution of 3 mLropivacaine and 1 mL Kenalog 40 mg was injected into the joint space underfluoroscopy. Hard copy images were obtained. The patient tolerated the procedurewell. IMPRESSION: Technically successful fluoroscopic guided bilateral hip steroidinjections THIS IS AN ELECTRONICALLY VERIFIED FINAL REPORT 03/08/2024 2:30 PM - Electronically signed by Belgica Monae D.O. PS: JOSHUA Report ID: [id number] Reading Location: [id number] Ralph Currie MD IMG FLUOROSCOPY PROCEDUR ES Final Result from Last 3 Months Insurance [facility] [facility] [email or web address] Advance Directives For more information, please contact: [phone] * Full Code (Latest Code Status on File) Date Activated Date Inactivated Comments 03/21/2018 9:24 AM 03/21/2018 3:31 PM * Full Code Date Activated Date Inactivated Comments 03/21/2018 9:24 AM 03/21/2018 9:24 AM Care Teams General Ophthalmologist Relationship Specialty Start Date End Date Tennille Newsome MD [address] [place] [address] PCP - General 06/15/07
--- OUTSIDE RECORDS SUMMARY | 2024-06-06 07:11 | XMS_ITS | Clinical Summary ---
Author Organization [facility] Medical Office Building B Address [address] [place] [address] Care Team Providers Care Securities Consultant Name Role Phone Tennille Newsome MD Primary Care Provider Allergies No known active allergies Medications tamsulosin (FLOMAX) 0.4 mg extended release capsule 1 capsule (0.4 mg total) daily Active cetirizine (ZyrTEC) 10 mg tablet Take 1 tablet (10 mg total) by mouth daily Active cyanocobalamin/ folic acid (VITAMIN I82-EHFHP ACID ORAL) Take 1,000 mcg by mouth [...] (03/18/2018): Added automatically from request for surgery [id number] Epigastric pain 03/18/2018 Overview (03/18/2018): Added automatically from request for surgery [id number] Resolved Problems Problem Noted Date Diagnosed Date Resolved Date Unilateral inguinal hernia w ithout obstruction or gangrene 05/13/2023 07/07/2023 Assessment & Plan (06/09/2023 11:19 AM CDT): Becoming more symptomatic to the right groin. We discussed robotic inguinal hernia repair with mesh, as well as post operative phase. He is understanding and agreeable. Encounters Date Type Department Care Team Description 06/01/2024 Orders Only [facility] Orthopedics and Sports Medicine [address] [place] [address] [address] [address] Mariela Reyes PA Primary osteoarthritis of right hip (Primary Dx); Primary osteoarthritis of left hip 2024 Telephone [facility] and Sports Medicine [address] [place] [address] Ralph Currie MD 05/30/2024 Telephone [facility] and Sports Medicine [address] [place] [address] [address], [place] [address] Ralph Currie MD 05/16/2024 8:45 AM CDT Office Visit [facility] Orthopedics and Sports Medicine [address] [place] [address] Ralph Currie MD Primary osteoarthritis of right hip (Primary Dx); Primary osteoarthritis of left hip 03/16/2024 Orders Only [facility] Orthopedics and Sports Medicine [address] [place] [address] [address], [place] [address] Ralph Currie MD Bilateral primary osteoarthritis of hip (Primary Dx); Primary osteoarthritis of right hip; Primary osteoarthritis of left hip 03/08/2024 8:28 AM CIGARETTE STAMPER - 03/08/2024 11:59 PM CIGARETTE STAMPER Hospital Encounter [facility] [address] [place] [address] Rainer Clifford Primary osteoarthritis of right hip Discharge Disposition: Discharge to home or self care 03/08/2024 8:28 AM CIGARETTE STAMPER - 03/08/2024 11:59 PM CIGARETTE STAMPER Hospital Encounter [facility] [address] [place] [address] Rad, Amh Fluoro Primary osteoarthritis of left hip Discharge Disposition: Discharge to home or self care from Last 3 Months Surgical History Surgery Date Site/Laterality Comments SHOULDER SURGERY 02/23/2008 - 02/21/2009 Bilateral KNEE SURGERY 02/23/2004 - 02/21/2005 Left meniscus tear CARPAL TUNNEL RELEASE Bilateral HERNIA REPAIR 06/18/2023 Bilateral inguinal done laparoscopic/ open umbillical hernia FL FLUORO GUIDED INJECTION HIP LEFT 08/30/2023 Left FLUORO GUIDED INJECTION HIP RIGHT 08/30/2023 Right FL FLUORO GUIDED INJECTION HIP LEFT 12/06/2023 Left FLUORO GUIDED INJECTION HIP RIGHT 12/06/2023 Right FL FLUORO GUIDED INJECTION HIP LEFT 03/08/2024 Left FLUORO GUIDED INJECTION HIP RIGHT 03/08/2024 Right Medical History Medical History Date Comments GERD (gastroesophageal reflux disease) Family History Medical History Relation Name Comments Arthritis Father Cancer Father Scoliosis Father Cancer Mother Relation Name Status Comments Father Mother Social History Tobacco Use Types Packs/Day Years [...] on file Legal Sex Male 11:53 PM CIGARETTE STAMPER Gender Identity Not on file Sexual Orientation Not on file Obstetrics History Last Filed Vital Signs Vital Sign Reading [...] 05/16/2024 8:45 AM CDT Plan of Treatment Health Maintenance Due Date Last Done Comments Colon Cancer Screening-Colonoscopy 1958 Depression Screening 1958 Hepatitis C Screening 1958 Prostate Cancer Screening-PSA 1958 DTaP/Tdap/Td Vaccine (1 - Tdap) 1969 Hepatitis B Screening 1976 Pneumococcal vaccine 65+ (1 of 1 - PCV) 2008 Zoster Vaccine (1 of 2) 2008 Well Visit 65+ 06/01/2023 Fall Risk Assessment 07/22/2024 07/23/2023, 05/27/19 Influenza Vaccine (Season Ended) 2024 Medical Devices Implanted Type Area Physical Trainer Device Identifier Shelf Expiration Date Model / Serial / Lot Medtronic [employer] Progrip 15x9cm Self Fuse Cutter Rectangle Mesh Surgical Polyester Hernia [id number] - [id number] Implanted:Qty: 1 on 06/18/2023 by Zoltan Garvey MD at [facility] Left: Abdomen [employer] 09/22/2027 [id number] / / [id number] [employer] Progrip 15x9cm Self Fuse Cutter Rectangle Mesh Surgical Polyester Hernia [id number] - [id number] Implanted:Qty: 1 on 06/18/2023 by Zoltan Garvey MD at [facility] Right: Abdomen [employer] 09/22/2027 [id number] / / [id number] Procedures Procedure Name Priority Date/Time Associated Diagnosis Comments FL FLUORO GUIDED INJECTION HIP LEFT Schedule Routine, Read Routine (OP Routine) 03/08/2024 9:24 AM CIGARETTE STAMPER Primary osteoarthritis of left hip FLUORO GUIDED INJECTION HIP RIGHT Schedule Routine, Read Routine (OP Routine) 03/08/2024 9:23 AM CIGARETTE STAMPER Primary osteoarthritis of right hip from Last 3 Months Results * FL Fluoro Guided Injection Hip Left (03/08/2024 9:24 AM CIGARETTE STAMPER) Anatomical Region Laterality Modality Hip Left Radio Fluoroscop y 03/08/2024 2:27 PM CIGARETTE STAMPER Narrative 03/08/2024 2:30 PM CIGARETTE STAMPER EXAM DESCRIPTION: FL FLUORO GUIDED INJECTION HIP [...] Belgica Monae D.O. PS: PS Report ID: [id number] Reading Location: [id number] Procedure Note Belgica Monae, - 03/08/2024 EXAM DESCRIPTION: FL FLUORO GUIDED [...] Belgica Monae D.O. PS: PS Report ID: [id number] Reading Location: [id number] Ralph Currie MD IMG FLUOROSCOPY PROCEDUR ES Final Result * FL Fluoro Guided Injection Hip Right (03/08/2024 9:23 AM CIGARETTE STAMPER) Anatomical Region Laterality Modality Hip Right Radio Fluoroscop y 03/08/2024 2:27 PM CIGARETTE STAMPER Narrative 03/08/2024 2:30 PM CIGARETTE STAMPER EXAM DESCRIPTION: FL FLUORO GUIDED INJECTION HIP [...] Belgica Monae D.O. PS: PS Report ID: [id number] Reading Location: [id number] Procedure Note Belgica Monae, DO - 03/08/2024 [...] Belgica Monae D.O. PS: JOSHUA Report ID: [id number] Reading Location: [id number] Ralph Currie MD IMG FLUOROSCOPY PROCEDUR ES Final Result from Last 3 Months Insurance [employer] [facility] [employer] [facility] [employer] Advance Directives For more information, please contact: [phone] * Full Code (Latest Code Status on File) Date Activated Date Inactivated Comments 03/21/2018 9:24 AM 03/21/2018 3:31 PM * Full Code Date Activated Date Inactivated Comments 03/21/2018 9:24 AM 03/21/2018 9:24 AM Care Teams Securities Consultant Relationship Specialty Start Date End Date Tennille Newsome MD [address] [place] [address] [facility] - General 06/15/07
[2024-06-06 07:26] LABS: Basophils Absolute Auto 0.04 K/mm3 (0.00-0.10); Basophils Percent Auto 0.7 % (0.0-1.0); Eosinophils Absolute Auto 0.22 K/mm3 (0.02-0.50); Eosinophils Percent Auto 3.8 % (1.0-6.0); Hematocrit 44.5 % (37.0-46.0); Hemoglobin 14.2 g/dL (12.4-15.3); Immature Granulocyte Absolute 0.02 K/mm3 (0.00-0.00); Immature Granulocyte Percent A 0.3 % (0.0-0.0); Lymphocytes Absolute Auto 1.96 K/mm3 (1.10-4.50); Lymphocytes Percent Auto 34.2 % (18.0-42.0); Mean Corpuscular HGB Conc 31.9 g/dL (32-36); Mean Corpuscular Hemoglobin 29.3 pg (27.0-31.0); Mean Corpuscular Volume 91.8 fL (78.0-102.0); Mean Platelet Volume 9.4 fl (8.7-11.0); Monocytes Absolute Auto 0.33 K/mm3 (0.10-0.90); Monocytes Percent Auto 5.8 % (2.0-11.0); Neutrophils Absolute Auto 3.16 K/mm3 (1.70-7.20); Neutrophils Percent Auto 55.2 % (50.0-70.0); Platelet Count Result 262 K/mm3 (150-420); Red Blood Count 4.85 M/mm3 (4.70-6.10); Red Cell Distribution Width 12.8 % (11.6-14.4); White Blood Count 5.7 K/mm3 (4.8-10.8)
[2024-06-06 07:29] LABS: Add Urine Microscopic? NO; Appearance Urine Clear (Clear); Bilirubin Urine Negative (Negative); Blood Urine Negative (Negative); Color Urine Light Yellow (Yellow); Glucose Urine UA Negative (Negative); Ketones Urine Negative (Negative); Leukocyte Esterase Ur Negative (Negative); Nitrate Urine Negative (Negative); Protein Urine Negative (Negative); Specific Grav Ur 1.025 (1.010-1.020); Urobilinogen Urine 0.2 mg/dL (0.2-1.0)
[2024-06-06 07:54] LABS: Alanine Aminotransferase 37 U/L (16-63); Alkaline Phosphatase 67 U/L (46-116); Anion Gap 12 mmol/L (4-12); Aspartate Amino Transferase 17 U/L (15-37); Bilirubin,Total 1.1 mg/dL (0.00-1.00); Blood Urea Nitrogen 17 mg/dL (7-18); Calcium 8.9 mg/dL (8.5-10.1); Carbon Dioxide 28 mmol/L (21-32); Chloride 104 mmol/L (98-108); Cholesterol 215 mg/dL (0-200); Creatine Kinase 169 U/L (39-308); Estimated Glomerular Filt Rate > 60; Free T4 Free Thyroxine 0.95 ng/dL (0.76-1.46); Glucose 115 mg/dL (70-99); HDL Direct 40 mg/dL (40-60); LDL Cholesterol Calculated 147 mg/dL (<130); Osmolality Calculated 300 mOsm/kg (285-295); Potassium 4.6 mmol/L (3.5-5.1); Sodium 144 mmol/L (136-145); Thyroid Stimulating Hormone 2.38 uIU/mL (0.36-3.74); Total Protein 7.3 g/dL (6.4-8.2); Triglycerides 141 mg/dL (0-150)
[2024-06-06 08:03] LABS: CRP < 0.5 mg/dL (0.0-0.9)
[2024-06-06 08:26] LABS: Free T3 2.65 pg/mL (2.18-3.98)
[2024-06-06 08:27] LABS: Erythrocyte Sedimentation Rate 8 mm/hr (0-20)
[2024-06-07 20:28] LABS: HLA B27 NEGATIVE (NEGATIVE)
[2024-06-08 14:14] LABS: Cyclic Citrullinated Peptide <16 UNITS
[2024-06-09 15:39] LABS: Aldolase 3.8 U/L (< OR = 8.1)
== END 2024-06-06 07:09 | disposition home or self-care (01) ==
LOC: CHSLAB 07:10
PROVIDERS: PCP Internal Medicine; Visit Provider Internal Medicine
DX: M19.91 Primary osteoarthritis, unspecified site (principal); G62.9 Polyneuropathy, unspecified; E78.2 Mixed hyperlipidemia; R73.01 Impaired fasting glucose; M45.9 Ankylosing spondylitis of unspecified sites in spine
CPT/HCPCS: 36415; 80053; 80061; 81003; 82085; 82550; 83036; 84252; 84439; 84443; 84481; 85025; 85652; 86038; 86039; 86140; 86200; 86812

== ENCOUNTER 2024-10-10 10:23 | Outpatient (CLI) | payer MEDICARE, SELFPAY ==
--- NOTE | 2024-10-10 10:28 | ECHO_ITS ---
Patient Info Name: John uQeen Age: 64 years : 1960 Gender: Male Ht: 68 in Wt: 188 lbs BSA: 2.04 m2 HR: 74 bpm BP: 136 / 81 mmHg Technical Quality: Fair Exam Date: 10/10/2024 10:31 AM Patient Status: O Admit Date: 10/10/2024 Exam Type: CA echo doppler color flow Complete two-dimensional, color flow and Doppler transthoracic echocardiogram is performed. Communications Billing Analyst: Rosamaria Porter Attending Provider: Tennille Newsome MD Summary 1. Complete two-dimensional, color flow and Doppler transthoracic echocardiogram is performed. 2. Left ventricular chamber dimension is normal. 3. Left ventricular systolic function is normal, estimated at 65-70. 4. The left ventricular diastolic function is grade I diastolic dysfunction. 5. E/e' 12 mild elevated. 6. Left atrial chamber dimension is mildly enlarged. 7. No pulmonary hypertension, estimated pulmonary arterial systolic pressure is 22 mmHg. Left Ventricle E/e' 12 mild elevated. Left ventricular chamber dimension is normal. Left ventricular systolic function is normal, estimated at 65-70. The left ventricular diastolic function is grade I diastolic dysfunction. Right Ventricle Right ventricular chamber dimension is normal. Right ventricular systolic function is normal and with normal TAPSE 1.9 cm. Left Atria Left atrial chamber dimension is mildly enlarged. Right Atria Right atrial chamber dimension is normal. Aortic Valve The aortic valve is trileaflet. There is no aortic valve sclerosis. There is no aortic valve stenosis. There is no aortic valve regurgitation. Pulmonic Valve There is no pulmonic regurgitation. Mitral Valve There is no mitral valve stenosis. There is no mitral valve regurgitation. Tricuspid Valve There is no tricuspid valve regurgitation. No pulmonary hypertension, estimated pulmonary arterial systolic pressure is 22 mmHg. Pericardium/Pleural There is no pericardial effusion. Inferior Vena Cava Normal inferior vena cava with >50% collapse upon inspiration consistent with normal right atrial pressure, 5 mmHg. Aorta The aortic root size at the sinus of Valsalva is normal. Left Ventricular Outflow Tract Name Value Normal LVOT 2D LVOT Diameter 2.0 cm LVOT Doppler LVOT Peak Velocity 110 cm/s LVOT Peak Gradient 5 mmHg LVOT Mean Gradient 2 mmHg LVOT VTI 20 cm LVOT VTI/AV VTI Ratio 0.6 LVOT Stroke Volume 61 ml LVOT CO 4.1 l/min LVOT CI 2.0 l/min/m2 Pulmonic Valve Name Value Normal RVOT Doppler RVOT Peak Velocity 73 cm/s RVOT Peak Gradient 2 mmHg PV Doppler PV Peak Velocity 121 cm/s PV Peak Gradient 6 mmHg Mitral Valve Name Value Normal MV Diastolic Function MV E Peak Velocity 85 cm/s MV A Peak Velocity 108 cm/s MV E/A 0.8 MV Decel Time (PW) 235 ms MV Annular TDI MV E/e' (Septal) 17.1 MV E/e' (Lateral) 9.8 MV E/e' (Average) 13.5 Tricuspid Valve Name Value Normal TV Regurgitation Doppler TR Peak Velocity 205 cm/s TR Peak Gradient 17 mmHg Estimated PAP/RSVP RA Pressure 5 mmHg <=5 PA Systolic Pressure 22 mmHg <36 RV Systolic Pressure 22 mmHg <36 TV Annular TDI TV Lateral Agatha s' Velocity 12.3 cm/s >=9.5 Aorta Name Value Normal Ascending Aorta Ao Root Diameter (MM) 2.6 cm Ao Root Diam Index (MM) 1.3 cm/m2 Aortic Valve Name Value Normal AV Doppler AV Peak Velocity 199 cm/s AV Peak Gradient 16 mmHg AV Mean Gradient 7 mmHg AV VTI 32 cm AV Area (Cont Eq VTI) 1.9 cm2 >=3.0 AV Area (Cont Eq Bacilio) 1.7 cm2 AV DI (Bacilio) 0.55 AV Regurgitation 2D LVOT Area 3.0 cm2 Ventricles Name Value Normal LV Dimensions 2D/MM IVS Diastolic Thickness (2D) 0.8 cm 0.6-1.0 LVID Diastole (2D) 4.0 cm 4.2-5.8 LVIW Diastolic Thickness (2D) 0.8 cm 0.6-1.0 LVID Systole (2D) 2.5 cm 2.5-4.0 LVOT Diameter 2.0 cm LV Mass (2D Cubed) 91.08 g 88.00-224.00 LV Mass Index (2D Cubed) 45 g/m2 49-115 Relative Wall Thickness (2D) 0.39 <=0.42 LV Fractional Shortening/Ejection Fraction 2D/MM LV Fractional Shortening (2D) 36 % 25-43 LV EF (2D Teichholz) 67 % LV Diastolic Volume (4C MOD) 42 ml LV EF (4C MOD) 66 % LV Diastolic Volume (2C MOD) 52 ml LV EF (2C MOD) 73 % LV Diastolic Volume (BP MOD) 47 ml 62-150 LV Diastolic Volume Index (BP MOD) 23 ml/m2 34-74 LV Systolic Volume (BP MOD) 14 ml 21-61 LV Systolic Volume Index (BP MOD) 7 ml/m2 11-31 LV EF (BP MOD) 69 % 52-72 LV Diastolic Length (4C) 8.1 cm LV Systolic Length (4C) 6.6 cm LV Stroke Volume (4C MOD) 28 ml Atria Name Value Normal LA Dimensions LA Dimension (MM) 4.0 cm 3.0-4.0 LA Volume (4C A-L) 60 ml LA Volume (BP A-L) 61 ml RA Dimensions RA Systolic Major [place] Length (4C) 5.1 cm 2.1-2.7 RA Area (4C) 13.4 cm2 <=18.0 Report Signatures
--- OUTSIDE RECORDS SUMMARY | 2024-10-10 10:51 | XMS_ITS | Clinical Summary ---
Author Organization [facility] Medical Office Building B Address [address] [place] [address] Care Team Providers Care Team Primary Care Physician Name Role Phone Tennille Newsome MD Primary Care Provider [phone] Ralph Currie MD Unavailable [phone] Allergies No known active allergies Medications tamsulosin (FLOMAX) 0.4 mg extended release capsule 4,500 capsules (1,800 mg total) daily Active cetirizine (ZyrTEC) 10 mg tablet Take 1 tablet (10 mg total) by mouth daily Active cyanocobalamin /folic acid (VITAMIN R38-AZREL ACID ORAL) Take 1,000 mcg by mouth daily Active meloxicam (MOBIC) 15 mg tablet TAKE 1 TABLET (15 MG TOTAL) BY MOUTH DAILY. 30 tablet 2 5 07/11/19 26 Active aspirin 81 mg enteric coated tablet Take 1 tablet (81 mg total) by mouth 2 (two) times a day 84 tablet 5 Active celecoxib (CeleBREX) 200 mg capsuleIndicat ions:Postopera tive Acute Pain Take 1 capsule (200 mg total) by mouth 2 (two) times a day 84 capsule 5 Active ondansetron (ZOFRAN) 8 mg tabletIndicati ons:Prevention of Post-Operative Nausea and Vomiting Take 1 tablet (8 mg total) by mouth every 8 (eight) hours as needed for nausea or vomiting 20 tablet 2 5 Active senna-docusate (PERICOLACE) 8.6-50 mg Take 1 tablet by mouth 2 (two) times a day as needed for constipation 60 tablet 2 5 Active oxyCODONE-acet aminophen (PERCOCET) 5-325 mg per tabletIndicati ons:Pain Take 1-2 tablets by mouth every 4 (four) hours as needed for pain 40 tablet 5 Active rOPINIRole (REQUIP) 1 mg tablet Take 1 tablet (1 mg total) by mouth nightly at bedtime. 5 Active pravastatin (PRAVACHOL) 10 mg tablet Take 1 tablet (10 mg total) by mouth daily 5 Active ferrous sulfate 325 mg (65 mg of elemental iron) tabletIndicati ons:Iron Deficiency Anemia Take 1 tablet (325 mg total) by mouth daily with breakfast 30 tablet 5 10/07/19 25 ascorbic acid, vitamin C, 500 mg capsule Take 500 mg by mouth daily 30 capsule 5 10/07/19 25 Active Problems Problem Noted Date Diagnosed Date Primary osteoarthritis of right hip 08/28/2024 Pelvic pain 07/23/2023 Inguinal hernia without obstruction or gangrene 05/27/2023 Umbilical hernia without obstruction and without gangrene 05/27/2023 Right lower quadrant pain 04/20/2023 Encounter for screening colonoscopy 04/08/2023 Spondylosis of lumbar region without myelopathy or radiculopathy 02/23/2023 Sacroiliac joint dysfunction 02/23/2023 Sacroiliitis 02/23/2023 Lumbar radiculitis 02/23/2023 Gastroesophageal reflux disease 03/18/2018 Overview (03/18/2018): Added automatically from request for surgery [id number] Epigastric pain 03/18/2018 Overview (03/18/2018): Added automatically from request for surgery [id number] Resolved Problems Problem Noted Date Diagnosed Date Resolved Date Unilateral inguinal hernia w ithout obstruction or gangrene 05/13/2023 07/07/2023 Assessment & Plan (06/09/2023 11:19 AM CDT): Becoming more symptomatic to the right groin. We discussed robotic inguinal hernia repair with mesh, as well as post operative phase. He is understanding and agreeable. Encounters Date Type Department Care Team Description 09/28/[address] [facility] Medical [facility] Orthopedics and Sports Medicine [address] [place] [address] [address] [place] [address] Ralph Currie MD 3 Week Post Op Telemed 09/15/2024 Telephone [facility] Orthopedics and Sports Medicine [address] [place] [address] [address] [place] [address] Ralph Currie MD post-op questions 09/13/2024 Telephone [facility] Orthopedics and Sports Medicine [address] [place] [address] [address] [place] [address] Ralph Currie MD 09/06/2024 9:11 AM CDT Anesthesia Event [facility] Operating Room [address] [place] [address] Mirlande Arellano MD Kory, Christopher James, MD 09/06/2024 9:00 AM CDT - 09/06/2024 11:25 AM CDT Surgery [facility] Operating Room [address] [place] [address] Ralph Currie MD Right Total Hip Arthroplasty 09/06/2024 6:51 AM CDT - 09/07/2024 11:04 AM CDT Hospital Encounter [facility] Surgery Care [address] [place] [address] Ralph Currie MD Primary osteoarthritis of right hip (Primary Dx) Discharge Disposition: Discharge to home or self care 08/28/[address] [facility] Medical [facility] Orthopedics and Sports Medicine [address] [place] [phone] Radha Rachel MA Surgical Clearance 08/18/2024 9:10 AM CDT Lab [address] [address] Pre-operative exam 08/18/2024 9:09 AM CDT - 08/18/2024 11:59 PM CDT Hospital Encounter [facility] Imaging Center [address] [place] [address] Pre-operative exam Discharge Disposition: Discharge to home or self care 08/18/2024 9:06 AM CDT - 08/18/2024 11:59 PM CDT Hospital Encounter [facility] Cardiology [address] [place] [address] Pre-operative exam Discharge Disposition: Discharge to home or self care 08/07/2024 Telephone [facility]ics [facility] Medicine [address] [place] [address] [address] [place] [address] Ralph Currie MD 08/03/2024 9:00 AM CDT Office Visit [facility] [address] [place] [address] [address] [address] Ralph Currie MD Primary osteoarthritis of right hip (Primary Dx); Primary osteoarthritis of left hip; Pre-operative exam 08/03/2024 Telephone [facility] Orth[facility]ics [facility] Sports Medicine [address] [place] [address] [address] [place] [address] Ralph Currie MD Surgical Clearance from Last 3 Months Surgical History Surgery [...] FLUORO GUIDED INJECTION HIP RIGHT 03/08/2024 Right [place] FLUORO GUIDED INJECTION HIP LEFT 06/07/2024 Left FLUORO GUIDED INJECTION HIP RIGHT 06/07/2024 Right Medical History Medical History Date Comments GERD (gastroesophageal reflux disease) Hyperlipidemia Restless leg Family History Medical History Relation Name Comments [...] often do you have a drink containing alc ohol? Monthly or less 08/30/2024 Q2: How many drinks containi ng alcohol do you have on a typical day when you are drinking? 1 or 2 08/30/2024 Q3: How often do you have si x or more drinks on one occasion? Never 08/30/2024 PHQ-2 Answer Date Recorded PHQ-2 Total Score (If total score is 3 or more points, staff should administer the PHQ-9) 0 09/06/2024 Personal Safety Answer Date Recorded Have you ever been in or are you currently in a harmful physical or emotional relationship or is someone making you feel afraid or unsafe? 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 Gender Identity Not on file Sexual Orientation Not on file Obstetrics History Last Filed Vital Signs Vital Sign Reading Time Taken Comments Blood Pressure 123/73 09/07/2024 8:01 AM CDT Pulse 92 09/07/2024 8:01 AM CDT Temperature 36.6 C (97.9 F) 09/07/2024 8:01 AM CDT Respiratory Rate 20 09/07/2024 8:01 AM CDT Oxygen Saturation 98% 09/07/2024 8:01 AM CDT Inhaled Oxygen Concentration - - Weight 88.8 kg (195 lb 12.3 oz) 09/06/2024 7:08 AM CDT Height 171.5 cm (5' 7.5) 09/06/2024 7:08 AM CDT Body Mass Index 30.21 09/06/2024 7:08 AM CDT Plan of Treatment Health Maintenance Due Date Last Done Comments Colon Cancer Screening-Colonoscopy 1960 Hepatitis C Screening 1960 Prostate Cancer Screening-PSA 1960 DTaP/Tdap/Td Vaccine (1 - Tdap) 1969 Hepatitis B Screening 1976 Pneumococcal vaccine 65+ (1 of 1 - PCV) 2008 Zoster Vaccine (1 of 2) 2008 Well Visit 65+ 06/01/2023 Influenza Vaccine (#1) 2024 Depression Screening 08/28/2025 08/28/2024 Fall Risk Assessment 09/07/2025 09/07/2024, 08/28/2024, 05/27/2023 Medical Devices Implanted Type Area Steel Burner Device Identifier Shelf Expiration Date Model / Serial / Lot [employer] Progrip 15x9cm Self Steam Pipe Fitter Rectangle Mesh Surgical Polyester Hernia [id number] - [id number] Implanted:Qty: 1 on 06/18/2023 by Zoltan Garvey MD at [facility] Left: Abdomen Med[employer]onic Inc 09/22/2027 [id number] / / [id number] Med[employer]onic Inc Progrip 15x9cm Self Steam Pipe Fitter Rectangle Mesh Surgical Polyester Hernia [id number] - [id number] Implanted:Qty: 1 on 06/18/2023 by Zoltan Garvey MD at [facility] Right: Abdomen Med[employer] Inc 09/22/2027 [id number] / / [id number] Depuy [employer] [place] 56mm Sector Hip Shell Acetabular Gription Sterile Latex Free [id number] - [id number] Implanted:Qty: 1 on 09/06/2024 by Ralph Currie MD at [facility] Right: Hip [employer]uy [employer] Inc [id number] 06/21/2034 [id number] / / [id number] Dep[employer] [place] 56mm 36mm Hip Neutral Liner Acetabular Altrx Sterile Latex Free [id number] - [id number] Implanted:Qty: 1 on 09/06/2024 by Ralph Currie MD at [facility] Right: Hip [employer] [id number] 05/22/2029 [id number] / / [id number] Dep[employer] [place] 6.5mm 35mm Acetabular Cancellous Screw Bone Sterile 1217-35-500 - [id number] Implanted:Qty: 1 on 09/06/2024 by Ralph Currie MD at [facility] Right: Hip [employer] [id number] 05/22/2034 1217-35-500 / / [id number] Dep[employer] Actis Collar Hip 7 High Offset Stem Femoral [id number] - [id number] Implanted:Qty: 1 on 09/06/2024 by Ralph Currie MD at [facility] Right: Hip [employer] [id number] 06/21/2034 [id number] / / [id number] Dep[employer] Articul/Rolf 36mm Cementless Hip +5mm 02/04 Taper Head Femoral Latex Free [id number] - [id number] Implanted:Qty: 1 on 09/06/2024 by Ralph Currie MD at [facility] Right: Hip [employer] [id number] 05/22/2029 [id number] / / [id number] Procedures Procedure Name Priority Date/Time Associated Diagnosis Comments EGFR Routine 09/07/2024 5:14 AM CDT CBC WITHOUT DIFFERENTIAL Routine 09/07/2024 5:14 AM CDT BASIC METABOLIC PANEL Routine 09/07/2024 5:14 AM CDT POCT GLUCOSE DEVICE Routine 09/06/2024 3 :55 PM CDT XR PELVIS ORTHO VIEW ED Urgent/IP Urgent 09/06/2024 11:55 AM CDT SURGICAL PATHOLOGY Routine 09/06/2024 11:52 AM CDT Primary osteoarthritis of right hip FL FLUOROSCOPY < 1 HOUR IP Routine 09/06/2024 10:49 AM CDT Primary osteoarthritis of right hip XR HIP RIGHT 1 VIEW IP Routine 09/06/2024 10:49 AM CDT Primary osteoarthritis of right hip ANESTHESIA SPINAL BLOCK Routine 09/06/2024 10:19 AM CDT ARTHROPLASTY TOTAL HIP - ANTERIOR APPROACH 09/06/2024 8:50 AM CDT Primary osteoarthritis of right hip Special Needs Anterior Approach, Depuy- Actis , Omnitrac, Aquamantys, 1 Liter Beta Rinse, Pt to Go Home PROTIME-INR STAT 09/06/2024 7:17 AM CDT APTT STAT 09/06/2024 7:17 AM CDT ECG 12-LEAD Routine 08/18/2024 9:40 AM CDT Pre-operative exam XR CHEST PA LATERAL 2 VIEWS Schedule Routine, Read Routine (OP Routine) 08/18/2024 9:39 AM CDT Pre-operative exam EGFR Routine 08/18/2024 9:16 AM CDT Pre-operative exam DIFFERENTIAL AUTO Routine 08/18/2024 9:1 6 AM CDT Pre-operative exam CBC WITH AUTO DIFFERENTIAL Routine 08/18/2024 9:16 AM CDT Pre-operative exam COMPREHENSIVE METABOLIC PANEL Routine 08/18/2024 9:16 AM CDT Pre-operative exam HEMOGLOBIN A1C Routine 08/18/2024 9:16 AM CDT Pre-operative exam URINALYSIS AND REFLEX TO MICROSCOPIC AND CULTURE Routine 08/18/2024 9:16 AM CDT Pre-operative exam from Last 3 Months Results * eGFR (09/07/2024 5:14 AM CDT) eGFR >90 >=60 mL/min/1. 73 m2 Comment: Interpretive Data Reference Interval Normal >/= 90 mL/min/1.73m2 Mildly decreased* 60 - 89 mL/min/1.73m2 Mildly to moderately decreased 45 - 59 mL/min/1.73m2 Moderately to severely decreased 30 - 44 mL/min/1.73m2 Severely decreased 15 - 29 mL/min/1.73m2 Kidney Failure < 15 mL/min/1.73m2 *Relative to young adult level Estimated glomerular filtration rate is determined by the 2020 CKD-EPI equation recommended by the National Kidney Foundation (A Unifying Approach to GFR Estimation: Recommendations of the NKF-ASK Task Force on Reassessing the Inclusion of Race in Diagnosing Kidney Disease, JASN 2020). The CKD-EPI equation should not be used for patients with unstable renal function and has not been validated in children and those over 70. Current interpretive data was last reviewed 2020. Blood 09/07/2024 5:14 AM CDT 09/07/2024 5:18 AM CDT Mariela SWARTZ LAB BLOOD ORDERABLES Final Result [facility] ([place]) 1 [facility] Department [place] [address] * (ABNORMAL) CBC without differential (09/07/2024 5:14 AM CDT) WBC 11.41(H) 3.80 - 9.90 K/cumm Hgb 11.6(L) 13.0 - 17.5 g/dL [facility] ([place]) Hct 35.5(L) 38.9 - 50.3 % [facility] ([place]) Plt 205 150 - 400 K/cumm [facility] ([place]) MPV 9.2 9.1 - 12.3 fL [facility] ([place]) RBC 3.85(L) 4.30 - 5.80 M/cumm [facility] ([place]) MCV 92.2 81.3 - 96.4 fL [facility] ([place]) MCH 30.1 27.1 - 33.3 pg [facility] ([place]) MCHC 32.7 32.3 - 35.7 g/dL [facility] ([place]) RDW CV 13.1 11.1 - 14.9 % [facility] ([place]) RDW SD 44.3 35.7 - 48.1 fL [facility] ([place]) NRBC abs 0.00 0.00 - 0.01 K/cumm [facility] ([place]) Blood 09/07/2024 5:14 AM CDT 09/07/2024 5:18 AM CDT Mariela SWARTZ LAB BLOOD ORDERABLES Final Result Performing Organization Address City/[facility]/ZIP Co de Phone Number [facility] ([place]) 1 [facility] [place] [address] * Basic metabolic panel (09/07/2024 5:14 AM CDT) Sodium 137 135 - 145 mmol/L [facility] ([place]) Potassium, pl 4.1 3.3 - 4.9 mmol/L [facility] ([place]) Chloride 106 97 - 110 mmol/L [facility] ([place]) CO2 22 22 - 32 mmol/L [facility] ([place]) Anion gap 9 2 - 15 mmol/L [facility] ([place]) BUN 9 6 - 25 mg/dL [facility] ([place]) Creatinine 0.80 0.80 - 1.30 mg/dL [facility] ([place]) Glucose 163 70 - 199 mg/dL [facility] ([place]) Comment: Interpretive Data Fasting glucose >/= 126 mg/dl is diagnostic for diabetes. Fasting is defined as no caloric intake for at least 8 hours. Fasting glucose between 100 mg/dl to 125 mg/dl is diagnostic of prediabetes. In a patient with classic symptoms of hyperglycemia or hyperglycemic crisis, a random glucose >/= 200 mg/dl is diagnostic for diabetes. In the absence of unequivocal hyperglycemia, results should be confirmed by repeat testing. The classification and Diagnosis of Diabetes Diabetes Care 202; 46: S19-S40. Current interpretive data was last revised 2022. Calcium 8.5 8.5 - 10.3 mg/dL [facility] ([place]) Blood 09/07/2024 5:14 AM CDT 09/07/2024 5:18 AM CDT us Mariela SWARTZ LAB BLOOD ORDERABLES Final Result [facility] ([place]) 1 [facility] Department [place] [address] * POCT glucose (09/06/2024 3:55 PM CDT) Glucose, POC 111 70 - 199 mg/dL Blood 09/06/2024 3:55 PM CDT 09/06/2024 3:55 PM CDT us Ralph Currie MD LAB POCT ORDERABLES - DE VICE Final Result [facility] [place] 1 [facility] Department [place] [address] * XR Pelvis Ortho View (09/06/2024 11:55 AM CDT) Anatomical Region Laterality Modality Body, Pelvis N/A Computed Radiogr aphy 09/06/2024 5:06 PM CDT Narrative 09/06/2024 5:07 PM CDT EXAM DESCRIPTION: 1. XR PELVIS ORTHO VIEW REASON FOR STUDY: Hip osteoarthritis. Postoperative Care FINDINGS: Single-view submitted with comparison 02/10/2024. Interval right total hip arthroplasty in near anatomic alignment. No acute fracture. Moderate left hip osteoarthritis. IMPRESSION: 1. Interval right total hip arthroplasty in near anatomic alignment. THIS IS AN ELECTRONICALLY VERIFIED FINAL REPORT 09/06/2024 5:07 PM - Electronically signed by Vignesh Hurst M.D. MF: MARIAMA Report ID: [id number] Reading Location: [id number] Procedure Note Vignesh Hurst MD - 09/06/2024 EXAM DESCRIPTION: 1. XR PELVIS ORTHO VIEW REASON FOR STUDY: Hip osteoarthritis. Postoperative Care FINDINGS: Single-view submitted with comparison 02/10/2024. Interval right total hip arthroplasty in near anatomic alignment. Noacute fracture. Moderate left hip osteoarthritis. IMPRESSION: 1. Interval right total hip arthroplasty in near anatomic alignment. THIS IS AN ELECTRONICALLY VERIFIED FINAL REPORT 09/06/2024 5:07 PM - Electronically signed by Vignesh Hurst M.D. MF: MARIAMA Report ID: [id number] Reading Location: [id number] us Ralph Currie MD IMG XR PROCEDURES Final Result * Surgical pathology (09/06/2024 11:52 AM CDT) Tissue (Bone Fragment(s),) 09/06/2024 10:50 AM CDT Narrative PATHOLOGY [facility] ([place]) - 09/08/2024 3:29 PM CDT EPIC results best viewed via link to PDF [facility] Department of Pathology [address] [place] [id number] Note to Patients: This report may contain a detailed description of human tissue sent by a health care provider to the laboratory for pathologic evaluation. The content of this report is essential for diagnosis and may provide important critical findings. This information may be unfamiliar to patients to review without a medical professional present. It is advised that the patient review this report in the presence of a health care provider who can answer questions and explain the details. Final Report Patient Name: MUSA QUEEN Address: [address] [place], [place] [address]- Gender: M : 1960 (Age: 64) Service: Surgery Location: [facility] Hospital #: [id number] Patient Type: [facility] OP in bed Taken: 09/06/2024 Received: 09/06/2024 Accessioned: 09/06/2024 Reported: 09/08/2024 Physician(s):Dr. Ralph Currie M.D. Diagnosis: Right hip, arthroplasty: - Degenerative joint disease consistent with osteoarthritis. Vignesh Hill M.D. Report Electronically Reviewed and Signed Out By Vignesh Hill M.D. 09/08/2024 15:29:09 Specimen(s) Received: A: Bone fragments and tissue right hip Microscopic Description: Sections show fragments of benign bone and cartilage. The overlying articular cartilaginous surface shows degenerative features including areas of erosion with fissures and clefting. The underlying medullary space shows some focal medullary fibrosis and trilineage hematopoiesis. No significant inflammatory infiltrate is seen. There is no evidence of malignancy. Clinical History: Osteoarthritis of right hip. Right total hip arthroplasty. Gross Description: The specimen is received in a single container labeled MUSA QUEEN and right hip. It is a 6.1 cm in diameter femoral head and separate 15 cc aggregate of de anda gritty hemorrhagic cortical and cancellous bone. The articular surface of the femoral head shows degenerative changes of the cartilage with erosion and eburnation. The femoral neck margin is smooth. The specimen is bisected revealing no subchondral gross lesions. Desktop Architect sections are submitted in one cassette after decalcification. Mia Soares R.N., P.A./Linn Khan M.D. REPORT IMAGES AND SCANNED DOCUMENTS, IF INCLUDED, ONLY VIEWABLE IN PDF VERSION OF REPORT The performance characteristics of some immunohistochemical stains, fluorescence in-situ hybridization tests and immunophenotyping by flow cytometry cited in this report (if any) were determined by the Surgical Pathology Department at [facility] as part of an ongoing senior quality methods specialist program and in compliance with federally mandated regulations drawn from the Clinical Laboratory Improvement Act of 1988 (CLIA '88). Some of these tests rely on the use of analyte specific reagents and are subject to specific labeling requirements by the US Food and Drug Administration. Such diagnostic tests may only be performed in a facility that is certified by the Department of Health and Human Services as a high complexity laboratory under CLIA '88. The FDA has determined that such clearance or approval is not necessary. This test is used for clinical purposes. It should not be regarded as investigational or for research. Nevertheless, federal rules concerning the medical use of analyte specific reagents require that the following disclaimer be attached to the report: This test was developed and its performance characteristics determined by the Surgical Pathology Department [facility]. It has not been cleared or approved by the U. S. Food and Drug Administration. Note for decalcified specimens: This assay has not been validated on decalcified tissues. Results should be interpreted with caution given the possibility of false negativity on decalcified specimens Ralph Currie MD LAB PATHOLOGY ORDERABLES Final Result PATHOLOGY [facility] ([address] [address] * [place] Fluoroscopy < 1 Hour (09/06/2024 10:49 AM CDT) Narrative [facility] - 09/06/2024 10:49 AM CDT The images from this study are not interpreted by Radiology. Please refer to the physician's procedure / OR operative note. Ralph Currie MD IMG FLUOROSCOPY PROCEDUR ES Final Result [facility] * XR Hip Right 1 View (09/06/2024 10:49 AM CDT) Anatomical Region Laterality Modality Lower Extremities, Hip, Pelvis Right R adio Fluoroscopy 09/06/2024 9:39 PM CDT Narrative 09/06/2024 9:40 PM CDT EXAM DESCRIPTION: 1. XR HIP RIGHT 1 VIEW REASON FOR STUDY: osteoarthritis DELROY 7 sec ft .86 mgy FINDINGS: Multiple fluoroscopic images consisting of a single view(s) submitted with comparison 06/07/2022 . Reference air kerma equals 0.86 mGy. Fluoroscopic images demonstrate an in progress right total hip arthroplasty placement . Soft tissue gas is present. IMPRESSION: 1. In progress right total hip arthroplasty placement. THIS IS AN ELECTRONICALLY VERIFIED FINAL REPORT 09/06/2024 9:40 PM - Electronically signed by Vignesh Hurst M.D. MF: MARIAMA Report ID: [id number] Reading Location: [id number] Procedure Note Vignesh Hurst MD - 09/06/2024 EXAM DESCRIPTION: 1. XR HIP RIGHT 1 VIEW REASON FOR STUDY: osteoarthritis DELROY 7 sec ft .86 mgy FINDINGS: Multiple fluoroscopic images consisting of a single view(s) submittedwith comparison 06/07/2022 . Reference air kerma equals 0.86 mGy. Fluoroscopic images demonstrate an in progress right total hiparthroplasty placement . Soft tissue gas is present. IMPRESSION: 1. In progress right total hip arthroplasty placement. THIS IS AN ELECTRONICALLY VERIFIED FINAL REPORT 09/06/2024 9:40 PM - Electronically signed by Vignesh Hurst M.D. MF: MARIAMA Report ID: [id number] Reading Location: [id number] Ralph Currie MD IMG XR PROCEDURES Final Result * Spinal Block (09/06/2024 10:19 AM CDT) Narrative Jed Unger CRNA - 09/06/2024 10:19 AM CDT Jed Unger CRNA 09/06/2024 10:20 AM Spinal Block Patient location: OR End time: 09/06/2024 9:18 AM Reason for block: primary anesthetic Staff: Placed by: ANJU:Jed Unger CRNA Procedure prep: Preprocedure checklist: patient identified, procedure contraindications assessed, site marked, procedure consent, surgical consent, IV checked, risks, benefits and alternatives discussed, monitors and equipment checked and timeout performed Patient position: sitting Monitoring: oximetry and blood pressure Supplemental O2: nasal cannula Prep solution: chlorhexadine/alcohol PPE: provider hat/mask, sterile gloves and sterile drape Skin infiltrated with lidocaine 1%: yes Spinal: Approach: midline Introducer used: no Location: L3-4 Spinal injection: CSF demonstrated, no aspiration of heme and no paresthesias noted Number of attempts: 2 Spinal Needle: Needle type: Quincke Needle gauge: 22 G Needle length: 9 cm Assessment: Sensory deficit - left: T8 Sensory deficit - right: T8 Events: patient tolerated procedure well with no complications us Mirlande Arellano MD ANESTHESIA ORDERABLES Fi nal Result * aPTT (09/06/2024 7:17 AM CDT) aPTT 32 28 - 38 sec [facility] ([place]) Comment: Interpretive Data Heparin therapeutic range: 66.0 - 100.0 seconds. Range based on correlation with therapeutic heparin activity range of 0.3 - 0.7 Units/mL. Current interpretive data was last revised on 2022. Blood 09/06/2024 7:17 AM CDT 09/06/2024 7:23 AM CDT us Ralph Currie MD LAB BLOOD ORDERABLES Fin al Result TANI TRACY ([place]) 1 [facility] Department [place] [address] * Protime-INR (09/06/2024 7:17 AM CDT) PT 10.5 9.7 - 13.0 sec [facility]ANI TR[place] ([place]) INR 0.97 0.90 - 1.20 [facility] ([place]) Comment: Interpretive data Oral anticoagulant therapeutic ranges: Venous thromboembolism prophylaxis or treatment: 2.0-3.0 CARDIOLOGY Standard range: 2.0-3.0 High-intensity range: 2.5-3.5 Refer to indication-specific guidelines for appropriate target ranges for prosthetic heart valve replacement. Current interpretive data was last revised on 2019. Blood 09/06/2024 7:17 AM CDT 09/06/2024 7:23 AM CDT Ralph Currie MD LAB BLOOD ORDERABLES Fin al Result Performing Organization Address [facility] Co de Phone Number TANI DEMARCUS ([place]) 1 [facility] Department [place] [address] * ECG 12 lead (08/18/2024 9:40 AM CDT) 08/18/2024 9:26 AM CDT Narrative [facility] - 08/18/2024 10:14 AM CDT Vent Rate: 60 bpm RR Interval: 988 msec PA Interval: 179 msec QRS Duration: 101 msec QT Interval: 387 msec QTC Interval: 388 msec P-R-T [place]: 207 - 179 - 184 degrees IMPRESSION: Baseline artifact, probable sinus rhythm POSSIBLE RIGHT VENTRICULAR HYPERTROPHY [SOME/ALL OF: PROMINENT R IN V1, LATE TRANSITION, RAD, [place], SSS] ABNORMAL ECG NO CHANGE FROM PREVIOUS TRACING NOTED Electronically Signed By: Cristiano Khalil MD Ralph Currie MD ECG ORDERABLES Final Re sult Performing Organization Address City/[facility]/ZIP Co de Phone Number [facility] [employer] [facility] * XR Chest Pa Lateral 2 Views (08/18/2024 9:39 AM CDT) Anatomical Region Laterality Modality Body, Chest N/A Computed Radiogr aphy 08/20/2024 6:31 PM CDT Narrative 08/20/2024 6:32 PM CDT EXAM DESCRIPTION: XR CHEST PA LATERAL 2 VIEWS REASON FOR STUDY: Pre-operative Exam Preop for right DELROY September 06 Non smoker TECHNIQUE: 2 radiographic view(s) of the chest. COMPARISON: None FINDINGS: The cardiomediastinal silhouette appears normal. There is no airspace consolidation or pleural effusion. There is a calcified granuloma at the right lung base. IMPRESSION: No acute findings THIS IS AN ELECTRONICALLY VERIFIED FINAL REPORT 08/20/2024 6:32 PM - Electronically signed by Russell Rivera M.D. JR: Report ID: [id number] Reading Location: [place] [address] Procedure Note Russell Rivera MD - 08/20/2024 EXAM DESCRIPTION: XR CHEST PA LATERAL 2 VIEWS REASON FOR STUDY: Pre-operative Exam Preop for right DELORY September 06 Non smoker TECHNIQUE: 2 radiographic view(s) of the chest. COMPARISON: None FINDINGS: The cardiomediastinal silhouette appears normal. There is no airspace consolidation or pleural effusion. There is a calcified granuloma at the right lung base. IMPRESSION: No acute findings THIS IS AN ELECTRONICALLY VERIFIED FINAL REPORT 08/20/2024 6:32 PM - Electronically signed by Russell Rivera M.D. JR: Report ID: [id number] Reading Location: [place] [address] Ralph Currie MD IMG XR PROCEDURES Final Result * eGFR (08/18/2024 9:16 AM CDT) eGFR 89 >=60 mL/min/1. 73 m2 Comment: Interpretive Data Reference Interval Normal >/= 90 mL/min/1.73m2 Mildly decreased* 60 - 89 mL/min/1.73m2 Mildly to moderately decreased 45 - 59 mL/min/1.73m2 Moderately to severely decreased 30 - 44 mL/min/1.73m2 Severely decreased 15 - 29 mL/min/1.73m2 Kidney Failure < 15 mL/min/1.73m2 *Relative to young adult level Estimated glomerular filtration rate is determined by the 2020 CKD-EPI equation recommended by the National Kidney Foundation (A Unifying Approach to GFR Estimation: Recommendations of the NKF-ASK Task Force on Reassessing the Inclusion of Race in Diagnosing Kidney Disease, JASN 2020). The CKD-EPI equation should not be used for patients with unstable renal function and has not been validated in children and those over 70. Current interpretive data was last reviewed 2020. Blood 08/18/2024 9:16 AM CDT 08/18/2024 9:41 AM CDT us Ralph Currie MD LAB BLOOD ORDERABLES Fin al Result [facility] ([place]) 1 [facility] Department [place] [address] * Differential, auto (08/18/2024 9:16 AM CDT) Neutrophil abs 3.79 1.50 - 6.50 K/cumm Imm gran abs 0.02 0.00 - 0.10 K/cumm [facility] ([place]) Lymphocyte abs 2.26 0.80 - 3.30 K/cumm [facility] ([place]) Monocyte abs 0.43 0.20 - 0.80 K/cumm [facility] ([place]) Eosinophil abs 0.30 0.00 - 0.50 K/cumm [facility] ([place]) Basophil abs 0.05 0.00 - 0.10 K/cumm [facility] ([place]) Neutrophil pct 55.3 % [facility] ([place]) Comment: Interpretive Data Percent cell count reference ranges are not reported, since discordance with absolute values may lead to misinterpretation of CBC data. Current Interpretive Data was last revised on 2017. Imm gran pct 0.3 % [facility] ([place]) Comment: Interpretive Data Percent cell count reference ranges are not reported, since discordance with absolute values may lead to misinterpretation of CBC data. Current Interpretive Data was last revised on 2017. Lymphocyte pct 33.0 % [facility] ([place]) Comment: Interpretive Data Percent cell count reference ranges are not reported, since discordance with absolute values may lead to misinterpretation of CBC data. Current Interpretive Data was last revised on 2017. Monocyte pct 6.3 % [facility] ([place]) Comment: Interpretive Data Percent cell count reference ranges are not reported, since discordance with absolute values may lead to misinterpretation of CBC data. Current Interpretive Data was last revised on 2017. Eosinophil pct 4.4 % [facility] ([place]) Comment: Interpretive Data Percent cell count reference ranges are not reported, since discordance with absolute values may lead to misinterpretation of CBC data. Current Interpretive Data was last revised on 2017. Basophil pct 0.7 % [facility] ([place]) Comment: Interpretive Data Percent cell count reference ranges are not reported, since discordance with absolute values may lead to misinterpretation of CBC data. Current Interpretive Data was last revised on 2017. Blood 08/18/2024 9:16 AM CDT 08/18/2024 9:41 AM CDT us Ralph Currie MD LAB BLOOD ORDERABLES [facility] al Result TANI TRACY ([place]) 1 [facility] Department [place] [address] * Urinalysis reflex to microscopic and culture Urine (08/18/2024 9:16 AM CDT) Color, ur Yellow Yellow Clarity, ur Clear Clear TANI Turpin ([place]) Specific gravity, ur 1.018 1.003 - 1.030 TANI TRACY ([place]) pH, urine 6.5 TANI TRACY ([place]) Comment: Interpretive Data U rine pH is affected by diet, medications, systemic acid-base disturbances, and renal tubular function. pH may affect urinary stone formation. For example, urine pH below 6.0 may help reduce the tendency for calcium phosphate stones and pH greater than 6.0 may reduce the tendency for uric acid stone formation. Source: [facility] Current Interpretive Data was last revised on 2017 Protein, ur ql Negative Negative [facility] ([place]) Glucose, ur ql Negative Negative [facility] ([place]) Ketones, ur Negative Negative [facility] ([place]) Bilirubin, ur Negative Negative [facility] ([place]) Blood, ur Negative Negative [facility] ([place]) Urobilinogen, ur <2.0 <2.0 mg/dL [facility] ([place]) Nitrite, ur Negative Negative [facility] ([place]) Leukocyte esterase, ur Negative Negative [facility] ([place]) UA reflex comment Reflex conditions for microscopic UA and culture not met. [facility] ([place]) Urine 08/18/2024 9:16 AM CDT 08/18/2024 9:43 AM CDT us Ralph Currie MD LAB MICROBIOLOGY - GENER AL ORDERABLES Final Result [facility] ([place]) 1 [facility] Department [place] [address] * CBC with auto differential (08/18/2024 9:16 AM CDT) WBC 6.85 3.80 - 9.90 K/cumm Hgb 14.2 13.0 - 17.5 g/dL [facility] ([place]) Hct 42.4 38.9 - 50.3 % [facility] ([place]) Plt 264 150 - 400 K/cumm [facility] ([place]) MPV 9.7 9.1 - 12.3 fL [facility] ([place]) RBC 4.71 4.30 - 5.80 M/cumm [facility] ([place]) MCV 90.0 81.3 - 96.4 fL [facility] ([place]) MCH 30.1 27.1 - 33.3 pg [facility] ([place]) MCHC 33.5 32.3 - 35.7 g/dL [facility] ([place]) RDW CV 12.5 11.1 - 14.9 % [facility] ([place]) RDW SD 41.8 35.7 - 48.1 fL [facility] ([place]) NRBC abs 0.00 0.00 - 0.01 K/cumm [facility] ([place]) Blood 08/18/2024 9:16 AM CDT 08/18/2024 9:41 AM CDT Ralph Currie MD LAB BLOOD ORDERABLES Fin al Result Performing Organization Address [facility] de Phone Number TANI TRACY ([place]) 1 [facility] [place] [address] * (ABNORMAL) Hemoglobin A1c (08/18/2024 9:16 AM CDT) Hgb A1C 5.8(H) 4.0 - 5.6 % Estimated Average Glucose 120 mg/dL [facility] ([place]) Comment: The ADA recommends reporting an estimated Average Glucose (eAG) with all Hemoglobin A1c results using the equation derived from a study of 507 normal and diabetic adults. Minority populations were underrepresented and children were not included. (Diabetes Care 31:3884-1239, 2008). The eAG is not equivalent to a fasting glucose. Blood 08/18/2024 9:16 AM CDT 08/18/2024 9:41 AM CDT Ralph Currie MD LAB BLOOD ORDERABLES Fin al Result Performing Organization Address [facility] de Phone Number TANI TRACY ([place]) 1 [facility] [place] [address] * Comprehensive metabolic panel (08/18/2024 9:16 AM CDT) Sodium 137 135 - 145 mmol/L Potassium, pl 4.6 3.3 - 4.9 mmol/L [facility] ([place]) Chloride 102 97 - 110 mmol/L [facility] ([place]) CO2 22 22 - 32 mmol/L [facility] ([place]) Anion gap 13 2 - 15 mmol/L [facility] ([place]) BUN 18 6 - 25 mg/dL [facility] ([place]) Creatinine 0.94 0.80 - 1.30 mg/dL [facility] ([place]) Glucose 112 70 - 199 mg/dL [facility] ([place]) Comment: Interpretive Data Fasting glucose >/= 126 mg/dl is diagnostic for diabetes. Fasting is defined as no caloric intake for at least 8 hours. Fasting glucose between 100 mg/dl to 125 mg/dl is diagnostic of prediabetes. In a patient with classic symptoms of hyperglycemia or hyperglycemic crisis, a random glucose >/= 200 mg/dl is diagnostic for diabetes. In the absence of unequivocal hyperglycemia, results should be confirmed by repeat testing. The classification and Diagnosis of Diabetes Diabetes Care 2021; 46: S19-S40. Current interpretive data was last revised 2022. Calcium 9.6 8.5 - 10.3 mg/dL [facility] ([place]) Bilirubin, total 1.0 0.1 - 1.2 mg/dL [facility] ([place]) Protein, pl 7.3 6.5 - 8.5 g/dL [facility] ([place]) Albumin 4.7 3.5 - 5.0 g/dL [facility] ([place]) Alk phos 52 40 - 130 Units/L [facility] ([place]) ALT 26 7 - 55 Units/L [facility] ([place]) AST 24 10 - 50 Units/L [facility] ([place]) Blood 08/18/2024 9:16 AM CDT 08/18/2024 9:41 AM CDT Ralph Currie MD LAB BLOOD ORDERABLES Fin al Result [facility] ([place]) 1 [facility] Department [place] [address] from Last 3 Months Insurance [facility] [employer] [facility] [employer] Advance Directives For more information, please contact: [phone] * Full Code (Latest Code Status on File) Date Activated Date Inactivated Comments 09/06/2024 12:12 PM 09/07/2024 3:09 PM * Full Code Date Activated Date Inactivated Comments 03/21/2018 9:24 AM 03/21/2018 3:31 PM * Full Code Date Activated Date Inactivated Comments 03/21/2018 9:24 AM 03/21/2018 9:24 AM Care Teams Team Primary Care Physician Relationship Specialty Start Date End Date Tennille Newsome MD [address] [place] [id number] PCP - General 06/15/07 Ralph Currie MD [address] [facility] [address] [place] [address] Surgeon Orthopedic Surgery 09/06/24
== END 2024-10-10 10:24 | disposition home or self-care (01) ==
LOC: CHSIMG 10:24
PROVIDERS: PCP Internal Medicine; Visit Provider Internal Medicine
DX: R94.31 Abnormal electrocardiogram [ECG] [EKG] (principal); I51.7 Cardiomegaly
CPT/HCPCS: 93306